=== PATIENT | female | born 1940 | race Caucasian/White ===

== ENCOUNTER 2017-11-10 19:01 | Inpatient (IN) | payer MEDICARE ==
[2017-11-10] MEDS ORDERED: niCARdipine 20MG In NaCl 20 MG/200 ML BAG ONE (19:03)
[2017-11-10 19:23] LABS: #Basophils 0.1 thou/uL (0.0-0.2); #Eosinphils 0.2 thou/uL (0.0-0.7); #Lymphocytes 2.6 thou/uL (1.20-3.40); #Monocytes 0.7 thou/uL (0.11-0.59); #Neutrophils 3.4 thou/uL (1.40-6.50); %Basophils 0.9 % (0.0-1.0); %Eosinophils 2.2 % (0.0-10.0); %Lymphocytes 37.9 % (21.0-51.0); %Monocytes 10.2 % (0.0-10.0); %Neutrophils 48.8 % (42.0-75.0); Hemoglobin 14.5 g/dL (12.0-16.0); Mean Corpuscular HGB CONC 35.3 g/dL (32.0-36.0); Mean Corpuscular Hemoglobin 30.7 pg (27.0-31.0); Mean Corpuscular Volume 86.9 fL (78.0-98.0); Mean Platelet Volume 8.6 fL (7.4-10.4); Platelet Count 163 thou/uL (130-400); RBC Distribution Width 12.1 % (11.5-14.5); Red Blood Cell (RBC) Count 4.73 mill/uL (4.20-5.40)
[2017-11-10 19:28] LABS: INR-International Normal Ratio 0.9; PTT 29.7 SEC (22.9-36.1); Prothrombin Time 12.5 SEC (12.0-14.7)
[2017-11-10] MEDS ORDERED: EPINEPHrine 1 MG/10 ML Abboject SYRINGE ONE (19:35)
[2017-11-10] MEDS ORDERED: EPINEPHrine 1 MG/ML AMP ONE (19:35)
[2017-11-10 19:37] LABS: ALT (SGPT) 18 U/L (8-55); AST (SGOT) 25 U/L (5-34); Acetaminophen Less than 6.0 mcg/mL (10.0-30.0); Albumin 4.6 g/dL (3.4-4.8); Alcohol Less than 10 mg/dL (Less than 10); Alkaline Phosphatase 55 U/L (40-150); Anion Gap 16 mmol/L (10-20); BUN (Urea Nitrogen) 17 mg/dL (9.8-20.1); Bilirubin, Total 0.5 mg/dL (0.2-1.2); CK (CPK) 98 U/L (29-168); Calc. Creatinine Clearance 0 mL/min (70-130); Calcium 10.1 mg/dL (7.8-10.44); Carbon Dioxide 21 mmol/L (23-31); Chloride 105 mmol/L (98-107); Estimated GFR-MDRD 65; Globulin 3.4 g/dL (2.4-3.5); Glucose 110 mg/dL (83-110); Potassium 3.9 mmol/L (3.5-5.1); Salicylate Less than 8.0 mg/dL (15.0-30.0); Sodium 138 mmol/L (136-145)
[2017-11-10 19:41] LABS: CKMB 1.3 ng/mL (0-6.6); Troponin I Less than 0.010 ng/mL (< 0.028)
[2017-11-10 19:54] LABS: Bilirubin Negative (Negative); Blood, Urine Negative (Negative); Clarity CLEAR (Clear); Glucose, Urine (Dipstick) Negative (Negative); Leukocyte Negative (Negative); Nitrite Negative (Negative); Protein, Urine (Dipstick) Negative (Neg-Trace); Specific Gravity, Urine 1.008 (1.002-1.036); Urobilinogen 0.2 mg/dL (0.2-1.0)
[2017-11-10 20:01] LABS: Amphetamine Not Detected (NotDetected); Barbiturates Screen Not Detected (NotDetected); Benzodiazepine Screen Not Detected (NotDetected); Cocaine Metabolite Screen Not Detected (NotDetected); Medtox Control Line Valid? VALID (VALID); Medtox Reader # READER 1; Methadone Not Detected (NotDetected); Methamphetamine Not Detected (NotDetected); Opiate Screen Not Detected (NotDetected); Oxycodone Screen Not Detected (NotDetected); Phencyclidine (PCP) Not Detected (NotDetected); THC/Cannabinoid Screen Not Detected (NotDetected); Tricyclic Screen Not Detected (NotDetected)
[2017-11-10 20:04] LABS: Actual Bicarbonate (HCO3a) 22.1 mEq/L (22-28); CO2 Tension 33.2 mmHg (35.0-45.0); O2 Tension (PaO2) 321.2 mmHg (> 70.0); pH, Arterial 7.44 (7.35-7.45)
[2017-11-10 20:05] LABS: Analyzer IN Cardio ER; Base Excess (BEa) -1.3 mEq/L (-2.0 to +3.0); Calcium, Ionized 1.2 mmol/L (1.12-1.30); Hemoglobin (Hb) 13.8 g/dL (12.0-16.0); Puncture Site RRA
--- NOTE | 2017-11-10 20:52 | RAD ---
CHEST ONE VIEW: 11/10/17 HISTORY: Intracranial hemorrhage. COMPARISON: None. FINDINGS: Portable semiupright chest demonstrates an endotracheal tube just proximal to the clavicles. Nasogast janet tube extends beyond the diaphragm. Distal tip is not seen. Normal cardiac silhouette. The pulmona ry vessels and hilum are normal. Costophrenic angles are clear. Patchy interstitial opacities in the lung bases, left greater than right may represent atelectasis, pneumonia or aspiration. No pneumothor ax or osseous abnormalities. IMPRESSION: Bibasilar opacities as described above. Lines and tubes as above. POS: [facility]
--- NOTE | 2017-11-10 21:33 | CT ---
NONCONTRAST HEAD CT 11/10/17 HISTORY: Stroke alert. Left facial droop. Last seen normal at 1845 hours. FINDINGS: There is evidence of an intraparenchymal hemorrhage which is centered in the right thalamus(2.1 x 3.1 cm)/right deep villaseñor matter structures. Hemorrhage appears to decompress into the ventricular system. There is hemorrhage in the right lateral ventricle, body of the left lateral ventricle, occipital ho rn of both lateral ventricles. Hemorrhage is also noted in the third ventricle, Sylvian aqueduct and fourth ventricle. There is some mass effect upon the third ventricle. Currently, there is mild promi nent of the ventricular system suggesting component of hydrocephalus. Cortical villaseñor-white matter differentiation is preserved. Calvarium is intact. Adequate aeration of the sinuses and mastoid air cells. IMPRESSION: Hemorrhagic, likely hypertensive bleed involving the right thalamus and deep villaseñor matter structures w ith decompression of hemorrhage into the ventricular system. There is associated mild hydrocephalus. Results of the study discussed with Dr. Neves, 11/10/17 at 7:16 p.m. Code NATALIE POS: [facility]
--- NOTE | 2017-11-10 22:04 | CT ---
HEAD CT WITHOUT CONTRAST 11/10/17 COMPARISON: 11/10/17. HISTORY: Followup intracranial hemorrhage. TECHNIQUE: Noncontrast head CT is performed from skull base to skull vertex. FINDINGS: Redemonstration of parenchymal hemorrhage centered in the right thalamus and deep villaseñor matter structu res. The hematoma measures 2.1 x 3.0 cm (previously measuring 3.1 x 2.1 cm. No appreciable change. Th ere is evidence of intraventricular hemorrhage. The degree of intraventricular blood is also stable. The overall configuration of the ventricular system has not changed. Stable mild prominence of tempor al horn of both lateral ventricles. No new areas of parenchymal hemorrhage are appreciated. Cortical villaseñor-white matter differentiation is preserved. Intact calvarium. There is no significant midline shift. However, there is some leftward mass effect upon the third ventricle secondary to the hematoma centered in the right thalamus/deep gr ay matter structures. IMPRESSION: Essentially stable intracranial hemorrhage. POS: [facility]
[2017-11-10] MEDS ORDERED: Milk Of Magnesia 30 ML UDCUP PO PRN (22:23)
[2017-11-10] MEDS ORDERED: Docusate 100 MG CAP PO PRN (22:23)
[2017-11-10] MEDS ORDERED: Mag-Al 1200 mg/1200 mg/30 ML UDCUP PO PRN (22:23)
[2017-11-10] MEDS ORDERED: niCARdipine 20MG in NaCl 200 ML BAG IVPB PRN (22:23)
[2017-11-10] MEDS ORDERED: Bisacodyl 10 MG SUPP PR PRN (22:23)
[2017-11-10] MEDS ORDERED: Ondansetron HCl/PF 4 MG/2 ML Vial IVP PRN (22:23)
[2017-11-10] MEDS ORDERED: Ventilator Sedation Protocol 1 EACH FS SCH (22:30)
[2017-11-10] MEDS ORDERED: fentaNYL Citrate/PF 2,000 MCG in Sodium Chloride 0.9% 60 ML IV SCH (22:37)
[2017-11-10] MEDS ORDERED: DISCONTINUE PREVIOUS NARCOTIC PAIN MEDICATIONS AND BENZODIAZEPINES FS SCH (22:37)
[2017-11-10] MEDS ORDERED: Propofol BOLUS 1,000 MG/100 ML VIAL IV PRN (22:37)
[2017-11-10] MEDS ORDERED: Fentanyl BOLUS 250 ML IVPB PRN (22:37)
[2017-11-10] MEDS ORDERED: Lorazepam 2 MG/ML VIAL SLOW IVP PRN (22:37)
[2017-11-10] MEDS: Sodium Chloride 0.9% 1,000 ML IV SCH (23:51)
[2017-11-11] MEDS: Propofol 1,000 MG/100 ML VIAL IV PRN ×2 (00:01→05:53)
[2017-11-11 07:27] LABS: Actual Bicarbonate (HCO3a) 21.9 mEq/L (22-28); Base Excess (BEa) -1.3 mEq/L (-2.0 to +3.0); CO2 Tension 32.7 mmHg (35.0-45.0); O2 Tension (PaO2) 138.9 mmHg (> 70.0); pH, Arterial 7.44 (7.35-7.45)
[2017-11-11 07:29] LABS: Hemoglobin (Hb) 15.6 g/dL (12.0-16.0)
[2017-11-11 07:30] LABS: Calcium, Ionized 1.1 mmol/L (1.12-1.30); Puncture Site RRA
[2017-11-11 07:31] LABS: ALV-art Gradient 105.425 (0-20)
--- NOTE | 2017-11-11 08:45 | CT ---
PRELIMINARY REPORT/[facility]/EMERGENTY AFTER-HOURS PROCEDURE CT Head Without Intravenous Contrast CLINICAL HISTORY: 77 years old, female; Condition or disease; Other: Hemorrhage; Patient HX: F/u intracerebral hemorrha gi stroke TECHNIQUE: Axial computed tomography images of the head/brain without intravenous contrast. COMPARISON: CT Brain WO Con 2017-11-10 21:44 FINDINGS: Essentially stable intracranial hemorrhage, with a 3.5 cm intraparenchymal hematoma in the right basa l ganglia/thalamus region, and intraventricular blood in the lateral, third, and fourth ventricles. No definite new hemorrhage in the interval. Essentially stable mass effect, with mild right and left midline shift at the level of intraparenchym al hemorrhage. Ventricle size is upper range of normal, stable. No other definite acute infarct by CT. No definite acute skull fracture. Minimal fluid/mucosal thickening in the sphenoid and maxillary sinuses. Included paranasal sinuses otherwise appear essentially clear. IMPRESSION: Essentially stable intracranial hemorrhage, see above details. No definite new hemorrhage in the interval. Other findings discussed above. Thank you for allowing us to participate in the care of your patient. Dictated and Authenticated by: Skip Forde MD 11/11/2017 6:25 AM Central Time ([place] & [place]) FINAL REPORT EMERGENT AFTER HOURS CT HEAD: DATE: 11/11/17. HISTORY: Intracerebral hemorrhagic stroke. Followup evaluation. COMPARISON: 11/10/17. IMPRESSION: 1. Stable parenchymal hemorrhage with epicenter in the region of the right basal ganglia/right thala mus with overall stable intraventricular hemorrhage again present. 2. Stable mild prominence of the temporal horns of the lateral ventricle which could be related to a n element of mild obstructive hydrocephalus due to intraventricular hemorrhage. 3. No new areas of hemorrhage are seen. 4. Chronic small-vessel ischemic changes and cerebral volume loss. 5. Sinus disease with air fluid level in the left sphenoid sinus and left maxillary antrum which may be related to intubation. 6. Findings are in agreement with the preliminary report by [facility]. POS: [facility]
--- NOTE | 2017-11-11 09:01 | HP ---
CHIEF COMPLAINT: Altered mental status. HISTORY OF PRESENT ILLNESS: Ms. Patel is a 77-year-old female who was reportedly brought to the ER due to stroke-like symptoms. The patient's friends were with her at that time. They state that she was at the [facility] [employer] meeting giving a speech and began to have slurred speech and left-sided numbness. This was approximately at about 6:35 p.m. EMS was called at 6:43 p.m. Upon arrival at the hospital, stated that she was alert, oriented, and she was answering questions. The patient began to deteriorate and had respiratory distress. The patient was intubated and sedated. Upon arrival in the patient's emergency room, she is intubated and resting comfortably, does not appear to be in any distress. The patient is hypertensive. We were consulted due to hemorrhagic hypertensive bleed involving the right thalamus and deep villaseñor matter structures with the question of hemorrhage into the ventricular system. Talking to patient's daughter, she states that the patient is a very high functioning 77-year-old, very active in the community, lives at home alone. REVIEW OF SYSTEMS: The patient is intubated and unable to obtain review of systems. PAST MEDICAL HISTORY: The patient is intubated, unable to obtain. Per the daughter, patient has known hypertension. No history of atrial fibrillation, stroke or arrhythmias. SURGICAL HISTORY: Per the daughter, history of cataract surgery and a hysterectomy many years ago. SOCIAL HISTORY: Unable to obtain. MEDICATIONS: Synthroid, atorvastatin, zolpidem, metoprolol, losartan, Restasis , acetaminophen, phenylephrine HCL, saline nasal spray. ALLERGIES: No known drug allergies. PHYSICAL EXAMINATION: VITAL SIGNS: BP 195/124, heart rate 76, respiratory rate 16, O2 100 on ventilator. The patient is afebrile. The patient is hypertensive. HEAD: Atraumatic, normocephalic. EYES: Pupils are equal, round, right is more reactive to light than left. NECK: Trachea is midline. No masses. RESPIRATORY: Patient is breathing normally with no sign of distress on respirator. CARDIOVASCULAR: Regular rate and rhythm. NEUROLOGIC: Patient is sedated and intubated. The patient is not responding to commands. The patient is moving 3 out of 4 extremities, both upper and lower on the right, lower extremity on the left. The patient is wiggling her toes. Patient is not retracting due to painful stimuli; however, she has been sedated for intubation. IMAGING: CT head noncontrast shows hypertensive hemorrhagic bleed involving the right thalamus and deep villaseñor matter structures with decompression of hemorrhage into the ventricular system. This is associated with mild hydrocephalus. Repeat CT is compared, no change. ASSESSMENT AND PLAN: The patient has intraparenchymal hemorrhage. PLAN: Maintain blood pressure below 150. We are going to have neuro checks q.4 hours. We are going to get a repeat CT scan in the morning. If scan is not expanding at this time we will repeat CT at 3:00 a.m. [facility]
--- NOTE | 2017-11-11 09:01 | CON ---
DATE OF CONSULTATION: 11/11/2017 Brabra Patel is a 77-year-old female with no primary care physician. As per the daughter, she sees Dr. Cook for uncontrolled hypertension, she recently had a checkup. She apparently developed a rather acute onset of left-sided weakness. EMS was called and apparently she was giving some kind of a speech at the [employer]. 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 Sh hanh does not smoke, drinks very infrequently. In the ER, she was found to have a large intracerebral h emorrhage extending into the thalamus. She is intubated on the vent. She is on low dose Diprivan. Additional medication this morning is that she is on nicardipine as IV drip. PAST MEDICAL HISTORY: Hypertension, high cholesterol, arthritis. PAST SURGICAL HISTORY: Right total knee, previous cardiac catheterization, previous eye surgery, pre vious stress test. CURRENT MEDICATIONS: Tylenol, Lipitor 20. Restasis eyedrops, metoprolol 25, Cozaar, apparently also includes Synthroid 100 mcg, atorvastatin, Zolpidem, losartan 25. ALLERGIES: None. SOCIAL/FAMILY HISTORY: Otherwise unremarkable. REVIEW OF SYSTEMS: Otherwise unobtainable, intubated. PHYSICAL EXAMINATION: VITAL SIGNS: Pulse 51, blood pressure 133/56, sats 90%, 30%, respirations 14. CHEST: No wheezing or crackles. CARDIAC: Normal S1, S2, no gallops. ABDOMEN: Soft. NEUROLOGIC: As noted, she is sedated. HEENT: Pupils are equal. LABORATORY AND X-RAY FINDINGS: Her pO2 is 138, pCO2 of 32%, 44 on a rate of 14 and 40% FIO2 and 4 of tidal volume. Electrolytes are normal. A toxicology screen was negative. Alcohol level was normal. IMPRESSION: 1. Status post intracerebral hemorrhage. 2. Hypertension. 3. Hypothyroidism. PLAN: 1. Continue vent support, minimize sedation. 2. Wean when she is neurologically stable. We will follow while in the ICU. Forty-five minutes critical care time.
--- NOTE | 2017-11-11 09:01 | PRG ---
DATE OF SERVICE: 11/11/2017 I personally examined the patient, reviewed records and imaging and agree with documentation of Yahaira Bella PA-C dated 11/10/2017. Briefly, Barbra Patel is a 77-year-old woman who was making presentation to [facility] yesterday when she began to have slurred speech, weakness and collapsed. [facility] the brain revealed a right thalamic hemorrhage with intraventricular extens ion. Due to some deterioration after intubation, she was sent back for scanning which was stable and she has had no other scan yet this morning. Nursing feels that her neurological function is improvi ng. I am seeing Ms. Patel in her hospital room. Her blood pressure is in the 120s. As I entered he room she is saturating well. She is on the ventilator. I turned the propofol off for just 1 yuni te and she begins to become purposeful with the right side. She localizes very quickly to sternal ru b. She attempts to open her eyes. There is down gaze preference. There is very limited upgaze. Th e left side moves a bit, but it is weaker. In the legs the strength is more symmetric with the right and left leg withdrawal quickly to some stimulus at the bottom of the foot. I reviewed this morning's CT scan in the thalamic hemorrhage is no different in size. There is a lit tle bit more vasogenic edema around it. There is no extra blood in the ventricular system. The vent ricular system has not grown in size. There is no obvious hydrocephalus. The sulci and gyri are sti ll visible over the convexity indicating that the ventricles are well balanced. Ms. Patel has improved neurologically. Her scan is stable. There is no ongoing bleeding. I would l hawa to get through this without surgical intervention. I discussed with her daughter on the phone th e possibility of external ventricular drainage should it be needed. I do not think surgical interven tion on the clot itself will be warranted in the future.
[2017-11-11] MEDS: Acetaminophen 325 MG TAB PO PRN (10:56)
[2017-11-11] MEDS ORDERED: DOPamine 400 MG/D5W 250 ML 250 ML IVPB SCH (11:00)
[2017-11-11] MEDS: Famotidine/PF 20 mg/2ml Vial SLOW IVP SCH ×2 (11:27→22:05)
[2017-11-11] MEDS: Sodium Chloride 0.9% 1,000 ML IV SCH ×2 (12:28→23:55)
[2017-11-11] MEDS: niCARdipine HCl 25 MG in Sodium Chloride 0.9% 250 ML 240 ML IVPB PRN ×2 (13:04→16:44)
--- NOTE | 2017-11-11 14:03 | PDOC.PN ---
- Subjective Encounter Start Date: 11/11/17 Encounter Start Time: 10:45 Subjective: pt intubated currently - Objective Vital Signs & Weight: Vital Signs (12 hours) Temp Pulse Resp BP BP Pulse Ox 11/11/17 13:00 100.1 F H 74 174/91 H 11/11/17 12:00 100.1 F H 14 11/11/17 11:00 100.2 F H 11/11/17 10:00 100.2 F H 63 14 138/65 100 11/11/17 08:35 99.9 F H 62 14 100 11/11/17 08:00 99.9 F H 11/11/17 06:50 55 L 158/72 H 11/11/17 06:00 14 11/11/17 04:00 97.8 F 14 11/11/17 02:03 60 Weight Admit Weight 155 lb Weight 155 lb 3.287 oz Most Recent Monitor Data Heart Rate from ECG 70 NIBP 147/99 NIBP BP-Mean 112 Respiration from ECG 19 SpO2 100 I&O: 11/10/17 11/11/17 11/12/17 06:59 06:59 06:59 Intake Total 725 80 Output Total 1160 365 Balance -435 -285 Result Diagrams: 11/10/17 19:12 11/10/17 19:12 Phys Exam - Physical Examination Neck: no nodes, no JVD, supple, full ROM Respiratory: no wheezing, no rales, no rhonchi, wheezing present, clear to auscultation bilateral Cardiovascular: RRR, no significant murmur, no rub, gallop, irregular Gastrointestinal: soft, no distention able to move right upper and lower ext on command, no eye openining Psychiatric: normal affect, A&O x 3 Dx/Plan (1) Hemorrhagic stroke Code(s): I61.9 - NONTRAUMATIC INTRACEREBRAL HEMORRHAGE, UNSPECIFIED Status: Acute (2) HTN (hypertension) Code(s): I10 - ESSENTIAL (PRIMARY) HYPERTENSION Status: Acute - Plan pt intubated currently is moving her right side on command but not opening -: her eyes -: bp controlled * . Review of Systems - Review of Systems Other: pt intubated - Medications/Allergies Allergies/Adverse Reactions: Allergies Allergy/AdvReac Type Severity Reaction Status Date / Time No Known Drug Allergies Allergy Unknown Verified 01/11/13 05:28 Medications: Current Medications Acetaminophen (Tylenol) 650 mg PO Q6H PRN PRN Reason: Fever > 101 or Headache Last Admin: 11/11/17 10:56 Dose: 650 mg Al Hydroxide/Mg Hydroxide (Maalox) 30 ml PO QIDPRN PRN PRN Reason: Dyspepsia Bisacodyl (Dulcolax) 10 mg LA DAILYPRN PRN PRN Reason: Constipation Docusate Sodium (Colace) 100 mg PO BIDPRN PRN PRN Reason: Constipation Famotidine (Pepcid) 20 mg SLOW IVP BID BIMAL Last Admin: 11/11/17 11:27 Dose: 20 mg Sodium Chloride (Normal Saline 0.9%) 1,000 mls @ 80 mls/hr IV .[id number] BIMAL Last Admin: 11/11/17 12:28 Dose: 1,000 mls Fentanyl Citrate 2,000 mcg/ (Sodium Chloride) 100 mls @ 0 mls/hr IV INF BIMAL; Per Protocol PRN Reason: Protocol Stop: 12/10/17 22:37 Fentanyl Citrate (Fentanyl Bolus) 250 mls @ 0 mls/hr IVPB PRN PRN; As Directed PRN Reason: Breakthrough pain/agitation Stop: 12/10/17 22:37 Nicardipine HCl 25 mg/ Sodium (Chloride) 250 mls @ 0 mls/hr IVPB INF PRN; Protocol; Titrate PRN Reason: For SBP > 150 or DBP > 90 Last Admin: 11/11/17 13:04 Dose: 250 mls Lorazepam (Ativan) 2 mg SLOW IVP Q1H PRN PRN Reason: Breakthrough agitation Stop: 12/10/17 22:37 Magnesium Hydroxide (Milk Of Magnesium) 30 ml PO BIDPRN PRN PRN Reason: Constipation Miscellaneous Medication (Ventilator Sedation Protocol) 1 each FS ONE BIMAL Stop: 12/10/17 22:31 Morphine Sulfate (Morphine Sulfate) 2 mg SLOW IVP Q1H PRN PRN Reason: BREAKTHROUGH PAIN/AGITATION Stop: 12/10/17 22:37 Discontinue Previous Narcotic Pain Medications And Benzodiazepines 1 each FS .ONE BIMAL Stop: 12/10/17 22:37 Ondansetron HCl (Zofran) 4 mg IVP BIDPRN PRN PRN Reason: Nausea/Vomiting Propofol (Diprivan) 1,000 mg IV INF PRN; Protocol PRN Reason: TO ACHIEVE GOAL RASS Stop: 12/10/17 22:37 Last Admin: 11/11/17 05:53 Dose: 1,000 mg Propofol (Diprivan Bolus) 20 mg IV Q5MIN PRN PRN Reason: BREAKTHROUGH AGITATION Stop: 12/10/17 22:37 Sodium Chloride (Flush - Normal Saline) 10 ml IVF PRN PRN PRN Reason: Saline Flush
[2017-11-12 08:07] LABS: Actual Bicarbonate (HCO3a) 19.2 mEq/L (22-28); Base Excess (BEa) -2.5 mEq/L (-2.0 to +3.0); CO2 Tension 26.2 mmHg (35.0-45.0); Hemoglobin (Hb) 15.3 g/dL (12.0-16.0); O2 Tension (PaO2) 68.3 mmHg (> 70.0); pH, Arterial 7.48 (7.35-7.45)
[2017-11-12 08:08] LABS: Calcium, Ionized 1.1 mmol/L (1.12-1.30); Puncture Site RRA
--- NOTE | 2017-11-12 09:04 | CT ---
PRELIMINARY REPORT/[facility]/EMERGENTY AFTER-HOURS PROCEDURE CT Head Without Intravenous Contrast EXAM DATE/TIME: 11/12/2017 3:15 AM CLINICAL HISTORY: 77 years old, female; Condition or disease; Other: Hemorrhage; Patient HX: F/u intracerebral hemorrha gic stroke TECHNIQUE: Axial computed tomography images of the head/brain without intravenous contrast. COMPARISON: CT Brain WO Con 2017-11-11 03:46 FINDINGS: Brain: Trace subarachnoid hemorrhage present in the posterior frontoparietal regions bilaterally is n ew compared to the prior study. No loss of villaseñor-white matter differentiation. Ventricles: Stable acute right thalamic hemorrhage with intraventricular extension. Stable intraventr icular blood clot. Stable 4 mm leftward midline shift. Ventricles are stable in caliber. Bones/joints: Normal. No acute fracture. Sinuses: Normal as visualized. No acute sinusitis. Mastoid air cells: Normal as visualized. No mastoid effusion. Soft tissues: Normal. IMPRESSION: 1. Stable acute right thalamic hemorrhage with intraventricular extension. Stable intraventricular bl ood clot. Stable 4 mm leftward midline shift. 2. Trace subarachnoid hemorrhage present in the posterior frontoparietal regions bilaterally is new c ompared to the prior study. Thank you for allowing us to participate in the care of your patient. Dictated and Authenticated by: Ghulam Acharya MD 11/12/2017 5:33 AM Central Time ([place] & [place]) EMERGENT AFTER HOURS CT HEAD: 11/12/2017 HISTORY: Follow-up intracranial hemorrhage. Intracerebral hemorrhagic stroke. COMPARISON: 11/11/2017 IMPRESSION: 1. Stable parenchymal hemorrhage with the epicenter again in the region of the right thalamus, with adjacent edema. The surrounding edema may be slightly increased from the prior study. 2. Stable intraventricular hemorrhage. There is, again, dilatation of the temporal horns of each la teral ventricle, which may be related to an element of obstructive hydrocephalus, due to intraventric ular hemorrhage. 3. New small focus of subarachnoid hemorrhage within the posterior frontal parietal lobes bilaterall y. 4. Slight shift of the midline structures to the left, measuring approximately 4 mm. The findings are in agreement with the preliminary report by [facility]. POS: [facility]
[2017-11-12 10:13] LABS: #Lymphocytes 0.9 thou/uL (1.20-3.40); #Monocytes 0.8 thou/uL (0.11-0.59); #Neutrophils 9.5 thou/uL (1.40-6.50); %Basophils 0.1 % (0.0-1.0); %Eosinophils 0.1 % (0.0-10.0); %Lymphocytes 8.3 % (21.0-51.0); %Monocytes 7.2 % (0.0-10.0); %Neutrophils 84.3 % (42.0-75.0); Hemoglobin 14.7 g/dL (12.0-16.0); Mean Corpuscular HGB CONC 34.9 g/dL (32.0-36.0); Mean Corpuscular Hemoglobin 30.1 pg (27.0-31.0); Mean Corpuscular Volume 86.3 fL (78.0-98.0); Mean Platelet Volume 8.8 fL (7.4-10.4); Platelet Count 153 thou/uL (130-400); RBC Distribution Width 12.1 % (11.5-14.5); White Blood Cell (WBC) Count 11.3 thou/uL (4.8-10.8)
[2017-11-12 10:30] LABS: Anion Gap 13 mmol/L (10-20); BUN (Urea Nitrogen) 9 mg/dL (9.8-20.1); Calc. Creatinine Clearance 76 mL/min (70-130); Carbon Dioxide 19 mmol/L (23-31); Chloride 105 mmol/L (98-107); Estimated GFR-MDRD 85; Glucose 131 mg/dL (83-110); Potassium 3.2 mmol/L (3.5-5.1); Sodium 134 mmol/L (136-145)
--- NOTE | 2017-11-12 10:32 | PRG ---
DATE OF SERVICE: 11/12/2017 I saw Barbra Patel in ICU room this morning and spoke with the daughter in the ICU waiting room. Ms. Andrey casiano is 2 days out from a right thalamic hemorrhage with intraventricular extension. Overnight, no si gnificant events were reported. Blood pressure seemed to be relatively well controlled in the last 2 4 hours. On examination, Ms. Patel has her eyes open as I entered the room this morning. I introduced myself and she nods, she is following commands well with the right side, too weak on the left. There is robin e withdrawal on the left lower extremity or triple flexion. There is no significant motion of the le ft upper extremity. There is no sensation on the left side. CT examination of the brain this morning reveals slight increase in the ventricular size, but the sul ci and gyri were not pressed out to the surface of the skull. Ms. Patel has thalamic and intraventricular hemorrhage. This is likely nonsurgical. The expansion o f the ventricular system is ordered in order to get CSF to circulate around the clot and it is not ca using pressure phenomenon. Clinically, she is getting better. I do not believe Ms. Patel shall require any surgical intervention. A limited intervention with exte rnal ventricular drain is possible, but much less likely now than it was when she was admitted. I th ink we will get through this without any neurosurgical procedure. The blood products should wash yony y over the 3-[address] scan as recommended after that. She undoubtedly will need a bra in rehabilitation or halfway placement following this hospitalization. Hopefully, she can make progress where a swallowing is safe rather than having had a tracheostomy and gastrostomy, but the mariaelena mccoy is aware that these are possibilities.
--- NOTE | 2017-11-12 11:59 | PRG ---
DATE OF SERVICE: 11/12/2017 SUBJECTIVE: This morning, she is more responsive, off sedation. She is not moving her left side, moves_ right side, squeezing it appropriately. OBJECTIVE: VITAL SIGNS: Blood pressure 118/60, pulse 70, respiration rate 18. She is afebrile. CHEST: Decreased breath sounds, no wheezing. CARDIAC: Normal S1 and S2, no gallops. ABDOMEN: Soft, no masses. LABORATORY DATA AND IMAGING DATA: PO2 of 68, pCO2 of43_, rate of 14. She is on CPAP right now. CT continues to show the thalamic hemorrhage, intracerebral hemorrhage. IMPRESSION: 1. Status post intracerebral hemorrhage. 2. Hypertension. PLAN: Continue CPAP. We will start nutrition and PT. As per family's wishes, she is a FULL CODE at this time. Hopefully, we can wean and extubate in the next several days. [id number] critical care time. [facility]
[2017-11-12] MEDS ORDERED: Potassium Chloride 20 MEQ in Premix Bag 1 BAG IVPB SCH (13:15)
--- NOTE | 2017-11-12 13:33 | ULT ---
BILATERAL LOWER EXTREMITY VENOUS DUPLEX ULTRASOUND INCLUDING COLOR AND SPECTRAL IMAGING: HISTORY: A 77-year-old female with high risk of DVT because of poor mobility. Intracranial hemorrhage. TECHNIQUE: Exam performed from the groin to the ankle, including the visualized greater saphenous, the common fe moral, the superficial femoral, the profunda femoral, the popliteal, the trifurcation, and the cement paver ior tibial vein regions. FINDINGS: There is phasic flow at all levels with normal compressibility and normal augmentation. No intralumi nal thrombus. Minimal distal subcutaneous swelling and edema, superficially. IMPRESSION: 1. No evidence for deep venous thrombosis. 2. Minimal distal lower leg subcutaneous edema and swelling. POS: [facility]
[2017-11-12] MEDS: Sodium Chloride 0.9% 1,000 ML IV SCH (15:36)
[2017-11-12] MEDS: Potassium Chloride 20 MEQ TAB PO SCH (15:58)
[2017-11-12] MEDS: Famotidine/PF 20 mg/2ml Vial SLOW IVP SCH ×2 (17:46→21:56)
[2017-11-12] MEDS: Acetaminophen 325 MG TAB PO PRN (18:17)
[2017-11-12] MEDS ORDERED: cycloSPORINE 0.05% Ophthalmic Droperette EA EYE PRN (21:04)
--- NOTE | 2017-11-12 21:08 | PDOC.PN ---
- Subjective Encounter Start Date: 11/12/17 Encounter Start Time: 12:30 Subjective: pt up in bed intubated but opening her eyes - Objective Vital Signs & Weight: Vital Signs (12 hours) Temp Pulse Pulse Pulse Resp BP BP 11/12/17 18:20 75 11/12/17 18:00 102.0 F H 22 H 11/12/17 16:00 99.0 F 24 H 11/12/17 15:33 71 147/82 H 11/12/17 14:00 19 11/12/17 12:00 98.3 F 17 11/12/17 11:47 53 L 116/50 L 11/12/17 11:07 70 71 137/54 L 11/12/17 10:00 17 BP Pulse Ox Pulse Ox 11/12/17 18:20 11/12/17 18:00 11/12/17 16:00 11/12/17 15:33 11/12/17 14:00 11/12/17 12:00 11/12/17 11:47 11/12/17 11:07 129/64 96 95 11/12/17 10:00 Weight Admit Weight 155 lb Weight 153 lb 10.595 oz Most Recent Monitor Data Heart Rate from ECG 79 NIBP 129/58 NIBP BP-Mean 73 Respiration from ECG 25 SpO2 97 I&O: 11/11/17 11/12/17 11/13/17 06:59 06:59 06:59 Intake Total 725 2158 60 Output Total 1160 2253 498 Balance -435 -95 -438 Result Diagrams: 11/12/17 09:57 11/12/17 09:57 Phys Exam - Physical Examination Neck: no nodes, no JVD, supple, full ROM Respiratory: no wheezing, no rales, no rhonchi, wheezing present, clear to auscultation bilateral Cardiovascular: RRR, no significant murmur, no rub, gallop, irregular Gastrointestinal: soft, non-tender, no distention, positive bowel sounds left side weakness, able to move her right upper and lower ext Dx/Plan (1) Hemorrhagic stroke Code(s): I61.9 - NONTRAUMATIC INTRACEREBRAL HEMORRHAGE, UNSPECIFIED Status: Acute (2) HTN (hypertension) Code(s): I10 - ESSENTIAL (PRIMARY) HYPERTENSION Status: Acute - Plan pt spiked a fever will get blood cx and ua -: cxr ordered in am. will hold off on abx for now, mild elevated wbc * . Review of Systems - Review of Systems Other: unable to obtain - Medications/Allergies Allergies/Adverse Reactions: Allergies Allergy/AdvReac Type Severity Reaction Status Date / Time No Known Drug Allergies Allergy Unknown Verified 01/11/13 05:28 Medications: Current Medications Acetaminophen (Tylenol) 650 mg PO Q6H PRN PRN Reason: Fever > 101 or Headache Last Admin: 11/12/17 18:17 Dose: 650 mg Al Hydroxide/Mg Hydroxide (Maalox) 30 ml PO QIDPRN PRN PRN Reason: Dyspepsia Atorvastatin Calcium (Lipitor) 20 mg PO DAILY BIMAL Bisacodyl (Dulcolax) 10 mg [place] DAILYPRN PRN PRN Reason: Constipation Cyclosporine (Restasis) 0 ml EA EYE BIDPRN PRN PRN Reason: Dry Eyes Docusate Sodium (Colace) 100 mg PO BIDPRN PRN PRN Reason: Constipation Famotidine (Pepcid) 20 mg SLOW IVP BID BIMAL Last Admin: 11/12/17 17:46 Dose: 20 mg Sodium Chloride (Normal Saline 0.9%) 1,000 mls @ 80 mls/hr IV .[id number] BIMAL Last Admin: 11/12/17 15:36 Dose: 1,000 mls Fentanyl Citrate 2,000 mcg/ (Sodium Chloride) 100 mls @ 0 mls/hr IV INF BIMAL; Per Protocol PRN Reason: Protocol Stop: 12/10/17 22:37 Fentanyl Citrate (Fentanyl Bolus) 250 mls @ 0 mls/hr IVPB PRN PRN; As Directed PRN Reason: Breakthrough pain/agitation Stop: 12/10/17 22:37 Nicardipine HCl 25 mg/ Sodium (Chloride) 250 mls @ 0 mls/hr IVPB INF PRN; Protocol; Titrate PRN Reason: For SBP > 150 or DBP > 90 Last Admin: 11/11/17 16:44 Dose: 250 mls Lorazepam (Ativan) 2 mg SLOW IVP Q1H PRN PRN Reason: Breakthrough agitation Stop: 12/10/17 22:37 Magnesium Hydroxide (Milk Of Magnesium) 30 ml PO BIDPRN PRN PRN Reason: Constipation Miscellaneous Medication (Ventilator Sedation Protocol) 1 each FS ONE BIMAL Stop: 12/10/17 22:31 Morphine Sulfate (Morphine Sulfate) 2 mg SLOW IVP Q1H PRN PRN Reason: BREAKTHROUGH PAIN/AGITATION Stop: 12/10/17 22:37 Discontinue Previous Narcotic Pain Medications And Benzodiazepines 1 each FS .ONE [facility] Stop: 12/10/17 22:37 Ondansetron HCl (Zofran) 4 mg IVP BIDPRN PRN PRN Reason: Nausea/Vomiting Potassium Chloride (K-Dur) 40 meq PO BID-[facility] Last Admin: 11/12/17 15:58 Dose: 40 meq Propofol (Diprivan) 1,000 mg IV INF PRN; Protocol PRN Reason: TO ACHIEVE GOAL RASS Stop: 12/10/17 22:37 Last Admin: 11/11/17 05:53 Dose: 1,000 mg Propofol (Diprivan Bolus) 20 mg IV Q5MIN PRN PRN Reason: BREAKTHROUGH AGITATION Stop: 12/10/17 22:37 Sodium Chloride (Flush - Normal Saline) 10 ml IVF PRN PRN PRN Reason: Saline Flush
[2017-11-13 04:32] LABS: Anion Gap 13 mmol/L (10-20); BUN (Urea Nitrogen) 14 mg/dL (9.8-20.1); Calc. Creatinine Clearance 76 mL/min (70-130); Calcium 8.8 mg/dL (7.8-10.44); Carbon Dioxide 18 mmol/L (23-31); Chloride 108 mmol/L (98-107); Estimated GFR-MDRD 85; Glucose 162 mg/dL (83-110); Potassium 3.6 mmol/L (3.5-5.1); Sodium 135 mmol/L (136-145)
[2017-11-13] MEDS: Sodium Chloride 0.9% 1,000 ML IV SCH ×2 (04:37→14:27)
[2017-11-13] MEDS: Acetaminophen 325 MG TAB PO PRN ×3 (05:08→20:33)
[2017-11-13 05:58] LABS: #Lymphocytes 1.1 thou/uL (1.20-3.40); #Monocytes 1.4 thou/uL (0.11-0.59); %Basophils 0.1 % (0.0-1.0); %Eosinophils 0.2 % (0.0-10.0); %Lymphocytes 7.8 % (21.0-51.0); %Monocytes 10.6 % (0.0-10.0); %Neutrophils 81.4 % (42.0-75.0); Mean Corpuscular HGB CONC 33.8 g/dL (32.0-36.0); Mean Corpuscular Hemoglobin 30.2 pg (27.0-31.0); Mean Corpuscular Volume 89.3 fL (78.0-98.0); Mean Platelet Volume 10.1 fL (7.4-10.4); Platelet Count 122 thou/uL (130-400); RBC Distribution Width 12.3 % (11.5-14.5); Red Blood Cell (RBC) Count 4.63 mill/uL (4.20-5.40); White Blood Cell (WBC) Count 13.5 thou/uL (4.8-10.8)
[2017-11-13 08:32] LABS: pH, Arterial 7.43 (7.35-7.45)
[2017-11-13 08:33] LABS: Actual Bicarbonate (HCO3a) 20.6 mEq/L (22-28); Base Excess (BEa) -2.8 mEq/L (-2.0 to +3.0); Hemoglobin (Hb) 14.1 g/dL (12.0-16.0); O2 Tension (PaO2) 59.1 mmHg (> 70.0)
[2017-11-13 08:34] LABS: Calcium, Ionized 1.2 mmol/L (1.12-1.30); Puncture Site RRA
[2017-11-13] MEDS: Atorvastatin Calcium 20 MG TAB PO SCH (08:34)
[2017-11-13] MEDS: Potassium Chloride 20 MEQ TAB PO SCH ×2 (08:34→16:16)
[2017-11-13] MEDS: Famotidine/PF 20 mg/2ml Vial SLOW IVP SCH ×2 (08:34→21:58)
[2017-11-13] MEDS: Piperacillin/Tazobactam 3.375 GM in Sodium Chloride 0.9% 100 ML IVPB SCH ×3 (09:13→20:33)
--- NOTE | 2017-11-13 09:32 | PRG ---
DATE OF SERVICE: 11/13/2017 I saw Ms. Patel in our ICU this morning. 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 Nurses do not report any significant events overnight. She is tolerating the ventilator. Her blood pressure seems well controlled. I saw her this morning in her critical care unit room and I note the blood pressur es recorded overnight are well within the targeted goals. Her heart rates have been in the 50s-60s. When I speak with Ms. Patel, she opens her eyes and meets my gaze. She follows commands on the righ t side. She is not moving the left side purposefully for me today. She is not following commands on her left side either. She drifts off to sleep quickly after we disengaged from our conversation. S odium this morning is 135. As expected, Ms. Patel will have her peak vasogenic edema sometime today and slowly it should improve over time. I do not think we are going to needed mannitol or any invasive procedure to control this , but she may get a little sleepier today than before. We will make sure that she is not getting any hypotonic fluids. We will continue to monitor her sodium and try to keep it in the normal to high n ormal range. On Tuesday, we spoke with the family about the future possibility of tracheostomy and ga strostomy. Hopefully, we do not have to do this, but if she remains on the ventilator few more days it might be a consideration. We will continue to follow.
--- NOTE | 2017-11-13 10:00 | PRG ---
DATE OF SERVICE: 11/13/2017 SUBJECTIVE: A 77-year-old female, intubated on the vent, still on CPAP without any distress. Accord ing to the nurses, she was responding a little bit more yesterday. IMAGING DATA: X-ray shows no new infiltrates. OBJECTIVE: VITAL SIGNS: Pulse 56, blood pressure 126/46, sats 90% on the vent, respiration 18. She is afebrile . CHEST: Bilateral rhonchi and crackles. CARDIAC: Normal S1 and S2, no gallops. ABDOMEN: Soft, no masses. LABORATORY DATA: White count . Electrolytes are normal. IMPRESSION: 1. Status post right thalamic hemorrhage, trace subarachnoid hemorrhage. 2. Respiratory failure. PLAN: From the pulmonary standpoint of view, she is on empiric antibiotics. Continue nutrition and PT. Try to maintain blood pressure. Discussed with family ongoing issues whether they needed trach and a PEG. At this stage, unlikely she is going to do well off the vent. Avoid sedation. [id number] critical care time.
--- NOTE | 2017-11-13 10:44 | RAD ---
PORTABLE AP CHEST XRAY: DATE: 11/13/17. HISTORY: On ventilator. COMPARISON: 11/10/17. FINDINGS: Endotracheal tube and nasogastric tubes remain in place and unchanged in position. Cardiac silhouett e and pulmonary vasculature are within normal limits for the technique of the exam. Increased patchy interstitial opacities are again seen at each lung base which have mildly increased at the right emiliana g base. Lungs are otherwise clear. No other interval change. IMPRESSION: 1. Bibasilar opacities which could be related to atelectasis, or bibasilar pneumonia. Followup to c omplete resolution is recommended. 2. Lines and tubes stable in position. POS: [facility]
--- NOTE | 2017-11-13 13:03 | PDOC.PN ---
- Subjective Encounter Start Date: 11/13/17 Encounter Start Time: 10:30 Subjective: pt inubated - Objective Vital Signs & Weight: Vital Signs (12 hours) Temp Pulse Resp BP Pulse Ox 11/13/17 12:00 99.0 F 22 H 11/13/17 11:29 57 L 158/61 H 11/13/17 10:00 22 H 11/13/17 08:00 98.7 F 53 L 22 H 92 L 11/13/17 07:52 52 L 132/50 L 11/13/17 06:00 98.7 F 11/13/17 05:48 18 11/13/17 04:00 18 11/13/17 02:00 20 11/13/17 01:54 62 Weight Admit Weight 155 lb Weight 157 lb 6.561 oz Most Recent Monitor Data Heart Rate from ECG 66 NIBP 165/62 NIBP BP-Mean 85 Respiration from ECG 23 SpO2 95 I&O: 11/12/17 11/13/17 11/14/17 06:59 06:59 06:59 Intake Total 2158 1653 130 Output Total 2253 923 330 Balance -95 730 -200 Result Diagrams: 11/13/17 03:46 11/13/17 03:46 Phys Exam - Physical Examination Neck: no nodes, no JVD, supple, full ROM Respiratory: no wheezing, no rales, no rhonchi, wheezing present, clear to auscultation bilateral Cardiovascular: RRR, no significant murmur, no rub, gallop, irregular Gastrointestinal: soft, no distention still has left side weakness Dx/Plan (1) Hemorrhagic stroke Code(s): I61.9 - NONTRAUMATIC INTRACEREBRAL HEMORRHAGE, UNSPECIFIED Status: Acute (2) HTN (hypertension) Code(s): I10 - ESSENTIAL (PRIMARY) HYPERTENSION Status: Acute (3) Fever Code(s): R50.9 - FEVER, UNSPECIFIED Status: Acute - Plan pt still intubated -: blood cx and ua checked, ua negative will start pt on zosyn, -: mild opacities noted on cxr. * . Review of Systems - Review of Systems Other: unable to do - Medications/Allergies Allergies/Adverse Reactions: Allergies Allergy/AdvReac Type Severity Reaction Status Date / Time No Known Drug Allergies Allergy Unknown Verified 01/11/13 05:28 Medications: Current Medications Acetaminophen (Tylenol) 650 mg PO Q6H PRN PRN Reason: Fever > 101 or Headache Last Admin: 11/13/17 12:57 Dose: 650 mg Al Hydroxide/Mg Hydroxide (Maalox) 30 ml PO QIDPRN PRN PRN Reason: Dyspepsia Atorvastatin Calcium (Lipitor) 20 mg PO DAILY [facility] Last Admin: 11/13/17 08:34 Dose: 20 mg Bisacodyl (Dulcolax) 10 mg [place] DAILYPRN PRN PRN Reason: Constipation Cyclosporine (Restasis) 0 ml EA EYE BIDPRN PRN PRN Reason: Dry Eyes Docusate Sodium (Colace) 100 mg PO BIDPRN PRN PRN Reason: Constipation Famotidine (Pepcid) 20 mg SLOW IVP BID [facility] Last Admin: 11/13/17 08:34 Dose: 20 mg Sodium Chloride (Normal Saline 0.9%) 1,000 mls @ 80 mls/hr IV .[id number] [facility] Last Admin: 11/13/17 04:37 Dose: 1,000 mls Fentanyl Citrate 2,000 mcg/ (Sodium Chloride) 100 mls @ 0 mls/hr IV INF BIMAL; Per Protocol PRN Reason: Protocol Stop: 12/10/17 22:37 Fentanyl Citrate (Fentanyl Bolus) 250 mls @ 0 mls/hr IVPB PRN PRN; As Directed PRN Reason: Breakthrough pain/agitation Stop: 12/10/17 22:37 Nicardipine HCl 25 mg/ Sodium (Chloride) 250 mls @ 0 mls/hr IVPB INF PRN; Protocol; Titrate PRN Reason: For SBP > 150 or DBP > 90 Last Admin: 11/11/17 16:44 Dose: 250 mls Piperacillin Sod/Tazobactam (Sod 3.375 gm/ Sodium Chloride) 100 mls @ 200 mls/ hr IVPB 0300,0900,1500,2100 [facility] Last Admin: 11/13/17 09:13 Dose: 100 mls Lorazepam (Ativan) 2 mg SLOW IVP Q1H PRN PRN Reason: Breakthrough agitation Stop: 12/10/17 22:37 Magnesium Hydroxide (Milk Of Magnesium) 30 ml PO BIDPRN PRN PRN Reason: Constipation Miscellaneous Medication (Ventilator Sedation Protocol) 1 each FS ONE [facility] Stop: 12/10/17 22:31 Morphine Sulfate (Morphine) 2 mg SLOW IVP Q1H PRN PRN Reason: BREAKTHROUGH PAIN/AGITATION Stop: 12/12/17 21:45 Last Admin: 11/13/17 02:34 Dose: 2 mg Discontinue Previous Narcotic Pain Medications And Benzodiazepines 1 each FS .ONE BIMAL Stop: 12/10/17 22:37 Ondansetron HCl (Zofran) 4 mg IVP BIDPRN PRN PRN Reason: Nausea/Vomiting Potassium Chloride (K-Dur) 40 meq [facility]ID[facility] Last Admin: 11/13/17 08:34 Dose: 40 meq Propofol (Diprivan) 1,000 mg IV INF PRN; Protocol PRN Reason: TO ACHIEVE GOAL RASS Stop: 12/10/17 22:37 Last Admin: 11/11/17 05:53 Dose: 1,000 mg Propofol (Diprivan Bolus) 20 mg IV Q5MIN PRN PRN Reason: BREAKTHROUGH AGITATION Stop: 12/10/17 22:37 Sodium Chloride (Flush - Normal Saline) 10 ml IVF PRN PRN PRN Reason: Saline Flush
[2017-11-14] MEDS: Piperacillin/Tazobactam 3.375 GM in Sodium Chloride 0.9% 100 ML IVPB SCH ×2 (03:30→08:54)
[2017-11-14] MEDS: Sodium Chloride 0.9% 1,000 ML IV SCH ×3 (03:31→17:04)
[2017-11-14 04:33] LABS: Anion Gap 11 mmol/L (10-20); BUN (Urea Nitrogen) 10 mg/dL (9.8-20.1); Calc. Creatinine Clearance 82 mL/min (70-130); Calcium 8.5 mg/dL (7.8-10.44); Carbon Dioxide 20 mmol/L (23-31); Chloride 106 mmol/L (98-107); Estimated GFR-MDRD 90; Glucose 153 mg/dL (83-110); Potassium 3.4 mmol/L (3.5-5.1); Sodium 134 mmol/L (136-145)
[2017-11-14 04:59] LABS: Band 11 % (5-11); Eosinophils 2 % (0-10); Hemoglobin 12.7 g/dL (12.0-16.0); Lymphocytes 19 % (21-51); MDiff Complete? YES; Mean Corpuscular HGB CONC 34.2 g/dL (32.0-36.0); Mean Corpuscular Hemoglobin 29.9 pg (27.0-31.0); Mean Corpuscular Volume 87.7 fL (78.0-98.0); Mean Platelet Volume 9.3 fL (7.4-10.4); Monocytes 7 % (0-10); Neutrophil 61 % (42-75); Nucleated RBC 1 % (0); PLT Morphology Comment Appears Decreased; Platelet Count 116 thou/uL (130-400); RBC Distribution Width 12.1 % (11.5-14.5); RBC Morphology Normal; Red Blood Cell (RBC) Count 4.24 mill/uL (4.20-5.40); White Blood Cell (WBC) Count 8.9 thou/uL (4.8-10.8)
[2017-11-14 07:34] LABS: pH, Arterial 7.47 (7.35-7.45)
[2017-11-14 07:35] LABS: Actual Bicarbonate (HCO3a) 20.1 mEq/L (22-28); Base Excess (BEa) -2.3 mEq/L (-2.0 to +3.0); CO2 Tension 28.1 mmHg (35.0-45.0); Hemoglobin (Hb) 12.7 g/dL (12.0-16.0); O2 Tension (PaO2) 68.7 mmHg (> 70.0)
[2017-11-14 07:36] LABS: ALV-art Gradient 145.725 (0-20); Calcium, Ionized 1.1 mmol/L (1.12-1.30); Puncture Site RRA
[2017-11-14 08:04] VITALS: BMI 26.7
--- NOTE | 2017-11-14 08:37 | PRG ---
DATE OF SERVICE: 11/14/2017 This morning she is on the vent, intubated with no sedation. PHYSICAL EXAMINATION: VITAL SIGNS: Pulse 50, blood pressure 128/62, sats are 100%, respirations 19, temperature was [address] night. NEURO: Neurologically, she moves her right side, but not much of the left side. CHEST: Chest reveals decreased breath sounds without any wheezing. CARDIAC: Normal S1, S2, no gallops. ABDOMEN: Soft, no masses. LABORATORY DATA: White count 8000, H&H 12 and 37, platelet count 116, PO2 was 68, pCO2 27.47 on a CP AP, 35% FiO2. Electrolytes are normal. Blood cultures drawn. X-ray shows now bilateral bronchopneumonia. IMPRESSION: 1. Status post respiratory failure. 2. Status post right-sided thalamic intracerebral hemorrhage with ventricular extension. 3. Pneumonia. PLAN: I am concerned if we extubate her it is very unlikely she would tolerate extubation. She is u nable to protect her airway. She has got a poor cough. Family is to have a meeting today and discuss whether they want a trach and a PEG. In the meantime w e will continue nutrition, maintain blood pressure. Broad spectrum antibiotics. This is a one-half hour critical care time.
[2017-11-14] MEDS: Atorvastatin Calcium 20 MG TAB PO SCH (08:53)
[2017-11-14] MEDS: Potassium Chloride 20 MEQ TAB PO SCH (08:53)
[2017-11-14] MEDS: Famotidine/PF 20 mg/2ml Vial SLOW IVP SCH ×2 (08:54→21:43)
[2017-11-14] MEDS: Cefepime 2 GM in Sodium Chloride 0.9% 100 ML IVPB SCH ×2 (08:54→21:46)
--- NOTE | 2017-11-14 10:16 | RAD ---
CHEST ONE VIEW: History: Intracranial hemorrhage. Dyspnea. Follow up. Comparison: 11-13-17 FINDINGS: Cardiac silhouette is magnified and partially obscured by increasing patchy bibasilar infiltrates. Pu lmonary vasculature upper limits of normal. Mediastinum is midline. Lines and tubes are unchanged in position. No evidence of pneumothorax. IMPRESSION: Worsening patchy bibasilar infiltrates. Other findings are stable. POS: [facility]
--- NOTE | 2017-11-14 11:12 | PQF ---
JAILYN CHUNG LEE ANN ALEXANDER [id number] CLINICAL DOCUMENTATION IMPROVEMENT CLARIFICATION FORM: ICD-10 Updated PLEASE DO AN ADDENDUM TO THE PROGRESS NOTE WITH ANY DOCUMENTATION UPDATES OR ADDITIONS AND CARRY THROUGH TO DC SUMMARY. THANK YOU. DATE: 11-14-1711-15-11-16 ATTN: DR. ALEXANDER Please exercise your independent, professional judgment in responding to the clarification form. Clinical indicators are provided on the bottom of this form for your review Please check appropriate box(s): [ x ] Aspiration Pneumonia [ ] Ventilator Acquired PNA [ ] Empirically treating Gram Negative Pneumonia [ ] Pneumonia of unknown etiology [ ] Other diagnosis [ ] Unable to determine In addition, please specify: Present on Admission (POA): [ ] Yes [ ] No [ x] Unable to determine For continuity of documentation, please document condition throughout progress notes and discharge summary. Thank You. CLINICAL INDICATORS - SIGNS / SYMPTOMS / LABS 11-10 CXR: PATCHY INTERSTITIAL OPACITIES IN LUNG BASES, LEFT GREATER THAN RIGHT. MAY REPRESENT ATELECTASIS, PNA OR ASPIRATION. 11-12 ([facility]) PT SPIKED FEVER (102.0) - WILL GET BLD CX AND UA; CXR 11-13 ([facility]) [facility]A NEGATIVE - WILL START PT ON ZOSYN / MILD OPACITIES NOTED ON CXR 11-13 CXR: BIBASILAR OPACITIES WHICH COULD BE R/T ATELECTASIS OR BIBASILAR PNA - F/U TO COMPLETE RESOLUTION IS RECOMMENDED; WORSENING PATCHY BIBASILAR INFILTRATES. 11-14 ([facility]) PNA RISK FACTORS 11-10 H&P ([facility]): slurred speech/ left-sided numbness; Intraparenchymal hemorrhage TREATMENTS: CPOE: ON VENT 11-10 - 11-14 Serial CXRs 11-10 / 11-13 / 11-14 MAR: 11-13 Zosyn 11-14 Maxipime 11-15 Speech Eval: Functional Impairment - speech / Language/cognitive / swallowing - all with severe functional impairment THANK YOU, TANISHA (This form is maintained as a part of the permanent medical record) 2014 [employer]. All Rights Reserved Tanisha Tilley RN, MARY [email or web address] [employer]
[2017-11-14 12:01] LABS: Phosphorus 1.4 mg/dL (2.3-4.7)
--- NOTE | 2017-11-14 13:33 | EKG ---
Test Reason : STAT Blood Pressure : / mmHG Vent. Rate : 073 BPM Atrial Rate : 073 BPM P-R Int : 164 ms QRS Dur : 088 ms QT Int : 454 ms P-R-T Axes : 077 065 093 degrees QTc Int : 500 ms Sinus rhythm with sinus arrhythmia with occasional Premature ventricular complexes Nonspecific ST abnormality Prolonged QT Abnormal ECG When compared with ECG of 10-NOV-2017 19:20, (Unconfirmed) Premature ventricular complexes are now Present Nonspecific T wave abnormality no longer evident in Inferior leads Nonspecific T wave abnormality, improved in Lateral leads QT has lengthened Confirmed by DIO BROWNLEE, DR. Bryant ([id number]) on 11/14/2017 1:32:30 PM Referred By: Confirmed By:DR. Manny WHARTON MD
--- NOTE | 2017-11-14 17:57 | PDOC.PN ---
- Subjective Encounter Start Date: 11/14/17 Encounter Start Time: 10:30 Subjective: pt's family at bedside pt is intubated - Objective Resuscitation Status: Resuscitation Status DNR:Do Not Resuscitate Vital Signs & Weight: Vital Signs (12 hours) Temp Pulse Pulse Pulse Resp BP BP 11/14/17 16:16 97.5 F L 59 L 20 11/14/17 15:56 97.5 F L 59 L 20 11/14/17 14:33 63 65 151/76 H 11/14/17 12:00 98.6 F 11/14/17 10:55 61 17 11/14/17 10:00 19 11/14/17 08:00 99.5 F 53 L 19 11/14/17 07:08 52 L 144/53 H 11/14/17 06:00 99.5 F 19 BP BP Pulse Ox Pulse Ox Pulse Ox 11/14/17 16:16 96 11/14/17 15:56 158/77 H 96 11/14/17 14:33 159/75 H 98 100 11/14/17 12:00 100 11/14/17 10:55 99 11/14/17 10:00 11/14/17 08:00 100 11/14/17 07:08 11/14/17 06:00 Weight Admit Weight 155 lb Weight 160 lb 11.472 oz Most Recent Monitor Data Heart Rate from ECG 66 NIBP 155/77 NIBP BP-Mean 93 Respiration from ECG 26 SpO2 99 I&O: 11/13/17 11/14/17 11/15/17 06:59 06:59 06:59 Intake Total 1653 3669 937 Output Total 923 1300 390 Balance 730 2369 547 Result Diagrams: 11/14/17 03:14 11/14/17 03:14 Phys Exam - Physical Examination HEENT: PERRLA, moist MMs, sclera anicteric, TM's clear, oral pharynx no lesions , 2+ tonsils Neck: no nodes, no JVD, supple, full ROM Respiratory: no wheezing, no rales, no rhonchi, wheezing present, clear to auscultation bilateral Cardiovascular: RRR, no significant murmur, no rub, gallop, irregular Musculoskeletal: no edema, pulses present, edema present Neurological: non-focal, normal sensation, moves all 4 limbs Dx/Plan (1) Hemorrhagic stroke Code(s): I61.9 - NONTRAUMATIC INTRACEREBRAL HEMORRHAGE, UNSPECIFIED Status: Acute (2) HTN (hypertension) Code(s): I10 - ESSENTIAL (PRIMARY) HYPERTENSION Status: Acute (3) Fever Code(s): R50.9 - FEVER, UNSPECIFIED Status: Acute - Plan Spoke with family and they want to make pt DNR and want to -: extubate the pt and see how she does. They do not want a feeding and -: a trach per their wishes. * . Review of Systems - Review of Systems Other: unable to obtain - Medications/Allergies Allergies/Adverse Reactions: Allergies Allergy/AdvReac Type Severity Reaction Status Date / Time No Known Drug Allergies Allergy Unknown Verified 01/11/13 05:28 Medications: Current Medications Acetaminophen (Tylenol) 650 mg PO Q6H PRN PRN Reason: Fever > 101 or Headache Last Admin: 11/13/17 20:33 Dose: 650 mg Al Hydroxide/Mg Hydroxide (Maalox) 30 ml PO QIDPRN PRN PRN Reason: Dyspepsia Atorvastatin Calcium (Lipitor) 20 mg PO DAILY [facility] Last Admin: 11/14/17 08:53 Dose: 20 mg Bisacodyl (Dulcolax) 10 mg [place] DAILYPRN PRN PRN Reason: Constipation Cyclosporine (Restasis) 0 ml EA EYE BIDPRN PRN PRN Reason: Dry Eyes Docusate Sodium (Colace) 100 mg PO BIDPRN PRN PRN Reason: Constipation Famotidine (Pepcid) 20 mg SLOW IVP BID [facility] Last Admin: 11/14/17 08:54 Dose: 20 mg Sodium Chloride (Normal Saline 0.9%) 1,000 mls @ 80 mls/hr IV .[id number] [facility] Last Admin: 11/14/17 17:04 Dose: 1,000 mls Fentanyl Citrate 2,000 mcg/ (Sodium Chloride) 100 mls @ 0 mls/hr IV INF BIMAL; Per Protocol PRN Reason: Protocol Stop: 12/10/17 22:37 Fentanyl Citrate (Fentanyl Bolus) 250 mls @ 0 mls/hr IVPB PRN PRN; As Directed PRN Reason: Breakthrough pain/agitation Stop: 12/10/17 22:37 Nicardipine HCl 25 mg/ Sodium (Chloride) 250 mls @ 0 mls/hr IVPB INF PRN; Protocol; Titrate PRN Reason: For SBP > 150 or DBP > 90 Last Admin: 11/11/17 16:44 Dose: 250 mls Cefepime HCl 2 gm/ Sodium (Chloride) 100 mls @ 200 mls/hr IVPB Q12HR BIMAL Last Admin: 11/14/17 08:54 Dose: 100 mls Lorazepam (Ativan) 2 mg SLOW IVP Q1H PRN PRN Reason: Breakthrough agitation Stop: 12/10/17 22:37 Magnesium Hydroxide (Milk Of Magnesium) 30 ml PO BIDPRN PRN PRN Reason: Constipation Miscellaneous Medication (Ventilator Sedation Protocol) 1 each FS ONE [facility] Stop: 12/10/17 22:31 Morphine Sulfate (Morphine) 2 mg SLOW IVP Q1H PRN PRN Reason: BREAKTHROUGH PAIN/AGITATION Stop: 12/12/17 21:45 Last Admin: 11/14/17 09:09 Dose: 2 mg Discontinue Previous Narcotic Pain Medications And Benzodiazepines 1 each FS .ONE [facility] Stop: 12/10/17 22:37 Ondansetron HCl (Zofran) 4 mg IVP BIDPRN PRN PRN Reason: Nausea/Vomiting Potassium Chloride (Klor-Con) 40 meq PER TUBE BID [facility] Propofol (Diprivan) 1,000 mg IV INF PRN; Protocol PRN Reason: TO ACHIEVE GOAL RASS Stop: 12/10/17 22:37 Last Admin: 11/11/17 05:53 Dose: 1,000 mg Propofol (Diprivan Bolus) 20 mg IV Q5MIN PRN PRN Reason: BREAKTHROUGH AGITATION Stop: 12/10/17 22:37 Sodium Chloride (Flush - Normal Saline) 10 ml IVF PRN PRN PRN Reason: Saline Flush
[2017-11-14] MEDS ORDERED: Potassium Phosphate 15 MMOL in Sodium Chloride 0.9% 250 ML 250 ML IVPB SCH (19:00)
[2017-11-14] MEDS ORDERED: Lorazepam 2 MG/ML VIAL SLOW IVP PRN (21:01)
[2017-11-14] MEDS: hydrALAZINE 20 MG/ML VIAL SLOW IVP PRN (21:40)
[2017-11-15 06:16] LABS: #Eosinphils 0.1 thou/uL (0.0-0.7); #Lymphocytes 0.9 thou/uL (1.20-3.40); #Monocytes 0.9 thou/uL (0.11-0.59); #Neutrophils 7.5 thou/uL (1.40-6.50); %Basophils 0.2 % (0.0-1.0); %Eosinophils 0.6 % (0.0-10.0); %Lymphocytes 9.6 % (21.0-51.0); %Monocytes 9.9 % (0.0-10.0); %Neutrophils 79.6 % (42.0-75.0); Mean Corpuscular HGB CONC 33.3 g/dL (32.0-36.0); Mean Corpuscular Hemoglobin 29.4 pg (27.0-31.0); Mean Corpuscular Volume 88.2 fL (78.0-98.0); Mean Platelet Volume 9.7 fL (7.4-10.4); Platelet Count 140 thou/uL (130-400); RBC Distribution Width 12.2 % (11.5-14.5); Red Blood Cell (RBC) Count 4.41 mill/uL (4.20-5.40); White Blood Cell (WBC) Count 9.4 thou/uL (4.8-10.8)
[2017-11-15 06:41] LABS: Anion Gap 12 mmol/L (10-20); BUN (Urea Nitrogen) 9 mg/dL (9.8-20.1); Calc. Creatinine Clearance 92 mL/min (70-130); Calcium 8.8 mg/dL (7.8-10.44); Carbon Dioxide 20 mmol/L (23-31); Chloride 105 mmol/L (98-107); Estimated GFR-MDRD Greater than 90; Glucose 109 mg/dL (83-110); Potassium 3.4 mmol/L (3.5-5.1); Sodium 134 mmol/L (136-145)
[2017-11-15] MEDS: hydrALAZINE 20 MG/ML VIAL SLOW IVP PRN ×2 (08:27→20:19)
[2017-11-15] MEDS: Famotidine/PF 20 mg/2ml Vial SLOW IVP SCH ×2 (09:09→21:10)
[2017-11-15] MEDS: Sodium Chloride 0.9% 1,000 ML IV SCH ×2 (09:11→23:24)
[2017-11-15] MEDS: Cefepime 2 GM in Sodium Chloride 0.9% 100 ML IVPB SCH (09:12)
[2017-11-15] MEDS: Atorvastatin Calcium 20 MG TAB PO SCH (09:17)
--- NOTE | 2017-11-15 10:39 | PRG ---
DATE OF SERVICE: 11/15/2017 SUBJECTIVE: Ms. Barbra Ptael was a DNR. She was extubated yesterday as per her daughter's wishes. OBJECTIVE: VITAL SIGNS: Sats are 96% on 2 liters, blood pressure 170/63, temperature 98. GENERAL: She is minimally responsive. CHEST: Reveals decreased breath sounds without any wheezing. CARDIAC: Normal S1, normal S2, no gallops. ABDOMEN: Soft, no masses. LABORATORY DATA: Appropriate. IMPRESSION: Intracerebral thalamic hemorrhage. PLAN: I had already discussed with the family at length regarding DNR status. I see no reason to or denise a Speech here. She probably needs inpatient hospice. There is a daughter at the bedside along with the patient's brother. I told them overall prognosis w as guarded.
[2017-11-15] MEDS ORDERED: Ketorolac Tromethamine 30 MG/ML VIAL IVP SCH (12:45)
--- NOTE | 2017-11-15 16:16 | PDOC.PN ---
- Subjective Encounter Start Date: 11/15/17 Encounter Start Time: 11:00 Subjective: pt in bed asleep not very arousable - Objective Resuscitation Status: Resuscitation Status DNR:Do Not Resuscitate Vital Signs & Weight: Vital Signs (12 hours) Temp Pulse Pulse Pulse Resp BP BP 11/15/17 13:40 59 L 11/15/17 11:35 98.7 F 65 18 11/15/17 08:37 62 20 11/15/17 08:30 95 62 134/83 11/15/17 08:27 66 171/63 H 11/15/17 08:00 98.1 F 62 20 11/15/17 07:35 98.1 F 66 18 BP BP Pulse Ox Pulse Ox Pulse Ox 11/15/17 13:40 164/76 H 99 11/15/17 11:35 156/72 H 95 11/15/17 08:37 128/65 96 11/15/17 08:30 128/65 93 L 96 11/15/17 08:27 11/15/17 08:00 96 11/15/17 07:35 171/73 H 94 L Weight Admit Weight 155 lb Weight 160 lb 11.472 oz Most Recent Monitor Data Heart Rate from ECG 66 NIBP 155/77 NIBP BP-Mean 93 Respiration from ECG 26 SpO2 99 I&O: 11/14/17 11/15/17 11/16/17 06:59 06:59 06:59 Intake Total 3669 2009.5 Output Total 1300 4040 Balance 2369 -2030.5 Result Diagrams: 11/15/17 05:54 11/15/17 05:54 Phys Exam - Physical Examination HEENT: PERRLA, moist MMs, sclera anicteric, TM's clear, oral pharynx no lesions , 2+ tonsils Neck: no nodes, no JVD, supple, full ROM mild rhonchi all over Cardiovascular: RRR, no significant murmur, no rub, gallop, irregular Gastrointestinal: soft, non-tender, no distention, positive bowel sounds pt drowsy but did PT today per family Dx/Plan (1) Hemorrhagic stroke Code(s): I61.9 - NONTRAUMATIC INTRACEREBRAL HEMORRHAGE, UNSPECIFIED Status: Acute (2) HTN (hypertension) Code(s): I10 - ESSENTIAL (PRIMARY) HYPERTENSION Status: Acute (3) Fever Code(s): R50.9 - FEVER, UNSPECIFIED Status: Acute - Plan pt very drowsy today -: continue zosyn for now if pt's mentation does not improve will -: check cxr in am and UA. NG tube in am if pt fails swallow eval in am * . Review of Systems - Review of Systems Other: unable to obtain - Medications/Allergies Allergies/Adverse Reactions: Allergies Allergy/AdvReac Type Severity Reaction Status Date / Time No Known Drug Allergies Allergy Unknown Verified 01/11/13 05:28 Medications: Current Medications Acetaminophen (Tylenol) 650 mg PO Q6H PRN PRN Reason: Fever > 101 or Headache Last Admin: 11/13/17 20:33 Dose: 650 mg Acetaminophen (Tylenol) 650 mg [place] Q6H PRN PRN Reason: Headache/Fever or Pain Al Hydroxide/Mg Hydroxide (Maalox) 30 ml PO QIDPRN PRN PRN Reason: Dyspepsia Atorvastatin Calcium (Lipitor) 20 mg PO DAILY [facility] Last Admin: 11/15/17 09:17 Dose: Not Given Bisacodyl (Dulcolax) 10 mg [place] DAILYPRN PRN PRN Reason: Constipation Cyclosporine (Restasis) 0 ml EA EYE BIDPRN PRN PRN Reason: Dry Eyes Docusate Sodium (Colace) 100 mg PO BIDPRN PRN PRN Reason: Constipation Famotidine (Pepcid) 20 mg SLOW IVP BID [facility] Last Admin: 11/15/17 09:09 Dose: 20 mg Hydralazine HCl (Apresoline) 10 mg SLOW IVP Q4H PRN PRN Reason: SBP Greater Than 170 Last Admin: 11/15/17 08:27 Dose: 10 mg Sodium Chloride (Normal Saline 0.9%) 1,000 mls @ 80 mls/hr IV .[id number] [facility] Last Admin: 11/15/17 09:11 Dose: 1,000 mls Piperacillin Sod/Tazobactam (Sod 3.375 gm/ Sodium Chloride) 100 mls @ 200 mls/ hr IVPB Q6HR [facility] Magnesium Hydroxide (Milk Of Magnesium) 30 ml PO BIDPRN PRN PRN Reason: Constipation Ondansetron HCl (Zofran) 4 mg IVP BIDPRN PRN PRN Reason: Nausea/Vomiting Potassium Chloride (Klor-Con) 40 meq PER TUBE BID [facility] Last Admin: 11/15/17 09:17 Dose: Not Given Sodium Chloride (Flush - Normal Saline) 10 ml IVF PRN PRN PRN Reason: Saline Flush
[2017-11-15] MEDS ORDERED: Potassium Phosphate 9 MMOL in Sodium Chloride 0.9% 100 ML IVPB SCH (16:30)
[2017-11-15] MEDS: Piperacillin/Tazobactam 3.375 GM in Sodium Chloride 0.9% 100 ML IVPB SCH ×2 (18:39→23:30)
[2017-11-16] MEDS: Piperacillin/Tazobactam 3.375 GM in Sodium Chloride 0.9% 100 ML IVPB SCH ×4 (05:36→23:34)
[2017-11-16 06:25] LABS: Anion Gap 15 mmol/L (10-20); BUN (Urea Nitrogen) 11 mg/dL (9.8-20.1); Calc. Creatinine Clearance 85 mL/min (70-130); Calcium 8.9 mg/dL (7.8-10.44); Carbon Dioxide 18 mmol/L (23-31); Chloride 104 mmol/L (98-107); Estimated GFR-MDRD Greater than 90; Glucose 112 mg/dL (83-110); Phosphorus 2.5 mg/dL (2.3-4.7); Potassium 3.1 mmol/L (3.5-5.1); Sodium 134 mmol/L (136-145)
[2017-11-16] MEDS: Sodium Chloride 0.9% 1,000 ML IV SCH ×2 (07:46→17:47)
[2017-11-16] MEDS: Atorvastatin Calcium 20 MG TAB PO SCH (07:47)
[2017-11-16] MEDS: hydrALAZINE 20 MG/ML VIAL SLOW IVP PRN ×3 (07:52→23:33)
[2017-11-16] MEDS ORDERED: Potassium Chloride 20 MEQ in Premix Bag 1 BAG IVPB SCH ×2 (08:00→12:00)
[2017-11-16] MEDS: Famotidine/PF 20 mg/2ml Vial SLOW IVP SCH ×2 (09:09→23:32)
--- NOTE | 2017-11-16 10:04 | PRG ---
DATE OF SERVICE: 11/16/2017 She is slightly more responsive. She has got a cough. PHYSICAL EXAMINATION: VITAL SIGNS: Blood pressure is elevated at 204/90, pulse 98, respirations 20, temperature 98.4, sats 97% on room air. CHEST: Anterior rhonchi. CARDIAC: Normal S1, S2, no gallops. ABDOMEN: Soft, no mass. White count 3000. IMPRESSION: 1. Status post cerebrovascular accident. 2. Retained secretions. PLAN: She is on broad spectrum antibiotic Zosyn which I will continue. Family now states they would like a trial of feeding tube. They do not want a PEG, but they agreed to put a Dobbhoff or a NG tub e. I discussed with the nurses at the bedside. It is okay to start feedings, if she pulls the tube out, I would then refrain from restarting it again. She was started on antibiotics without any obvious source of infection. I will follow at a distance. Please call as needed.
[2017-11-16] MEDS: Haloperidol Lactate 5 MG/ML VIAL SLOW IVP PRN ×2 (10:21→19:00)
[2017-11-16] MEDS ORDERED: Sodium Bicarbonate Tab 325 MG TAB PER TUBE PRN (13:45)
[2017-11-16] MEDS ORDERED: Pancrelipase DR 12000 1 CAP FS PRN (13:45)
[2017-11-16 14:54] LABS: Bilirubin Negative (Negative); Blood, Urine Trace (Negative); Clarity CLEAR (Clear); Glucose, Urine (Dipstick) Negative (Negative); Leukocyte Negative (Negative); Nitrite Negative (Negative); Protein, Urine (Dipstick) 100 mg/dL (Neg-Trace); Specific Gravity, Urine 1.029 (1.002-1.036); pH, Urine 5.5 (5.0-9.0)
[2017-11-16 14:57] LABS: Bacteria/HPF None Seen HPF (None Seen); Hyaline Casts/LPF 4-6 HYALINE CAST LPF (0-3 Hyaline); Pathc Cast-AUWi Flag 2.03 (0-2.49)
[2017-11-16 15:04] LABS: Actual Bicarbonate (HCO3a) 19.9 mEq/L (22-28); CO2 Tension 25.2 mmHg (35.0-45.0); O2 Tension (PaO2) 102.5 mmHg (> 70.0); pH, Arterial 7.52 (7.35-7.45)
[2017-11-16 15:05] LABS: Base Excess (BEa) -1.3 mEq/L (-2.0 to +3.0); Calcium, Ionized 1.1 mmol/L (1.12-1.30); Hemoglobin (Hb) 14.3 g/dL (12.0-16.0)
[2017-11-16 15:06] LABS: Puncture Site LRA
--- NOTE | 2017-11-16 15:39 | RAD ---
CHEST ONE VIEW: 11/16/17 HISTORY: Dyspnea. Followup. COMPARISON: 11/14/17. FINDINGS: The cardiac silhouette remains magnified by projection. Pulmonary vasculature is upper limits of norm al. Patchy bibasilar air space opacity has lessened since the previous exam. Mediastinum is midline. Nasogastric tube descends to the abdomen. Endotracheal catheter is no longer visible. No evidence of pneumothorax. IMPRESSION: Interval extubation. Improved aeration of the lung bases. Other findings are stable. POS: TPC
[2017-11-16 17:06] LABS: Renal Epithelial None Seen HPF (0-3); Transitional Epithelial NONE SEEN HPF (0-3)
--- NOTE | 2017-11-16 21:23 | PDOC.PN ---
- Subjective Encounter Start Date: 11/16/17 Encounter Start Time: 11:30 Subjective: pt up in bed still very drowsy - Objective Resuscitation Status: Resuscitation Status DNR:Do Not Resuscitate Vital Signs & Weight: Vital Signs (12 hours) Temp Pulse Resp BP BP Pulse Ox 11/16/17 19:00 98.2 F 73 16 131/60 96 11/16/17 17:42 69 194/83 H 11/16/17 15:00 98.9 F 69 20 194/83 H 97 11/16/17 11:00 98.1 F 66 20 145/72 H 97 Weight Admit Weight 155 lb Weight 160 lb 11.472 oz Most Recent Monitor Data Heart Rate from ECG 66 NIBP 155/77 NIBP BP-Mean 93 Respiration from ECG 26 SpO2 99 I&O: 11/15/17 11/16/17 11/17/17 06:59 06:59 06:59 Intake Total 2009.5 2062 1260 Output Total 4040 1450 700 Balance -2030.5 612 560 Result Diagrams: 11/15/17 05:54 11/16/17 05:56 Phys Exam - Physical Examination Neck: no nodes, no JVD, supple, full ROM mild rhonchi all over Cardiovascular: RRR, no significant murmur, no rub, gallop, irregular Gastrointestinal: soft, non-tender, no distention, positive bowel sounds Musculoskeletal: no edema, pulses present, edema present Dx/Plan (1) Hemorrhagic stroke Code(s): I61.9 - NONTRAUMATIC INTRACEREBRAL HEMORRHAGE, UNSPECIFIED Status: Acute (2) HTN (hypertension) Code(s): I10 - ESSENTIAL (PRIMARY) HYPERTENSION Status: Acute (3) Fever Code(s): R50.9 - FEVER, UNSPECIFIED Status: Acute - Plan will continue abx -: spoke with family will get abg, cxr and ua since pt is still drowsy -: Family agreeded on ng tube and start nutrition * . Review of Systems - Review of Systems Other: unable to obtain - Medications/Allergies Allergies/Adverse Reactions: Allergies Allergy/AdvReac Type Severity Reaction Status Date / Time No Known Drug Allergies Allergy Unknown Verified 01/11/13 05:28 Medications: Current Medications Acetaminophen (Tylenol) 650 mg PO Q6H PRN PRN Reason: Fever > 101 or Headache Last Admin: 11/13/17 20:33 Dose: 650 mg Acetaminophen (Tylenol) 650 mg [place] Q6H PRN PRN Reason: Headache/Fever or Pain Al Hydroxide/Mg Hydroxide (Maalox) 30 ml PO QIDPRN PRN PRN Reason: Dyspepsia Lipase/Protease/Amylase (Kaylin Chatman [id number]) 1 cap FS .PER PROTOCOL PRN PRN Reason: TUBE OCCLUSION PROTOCOL Atorvastatin Calcium (Lipitor) 20 mg PO DAILY [facility] Last Admin: 11/16/17 07:47 Dose: Not Given Bisacodyl (Dulcolax) 10 mg [place] DAILYPRN PRN PRN Reason: Constipation Cyclosporine (Restasis) 0 ml EA EYE BIDPRN PRN PRN Reason: Dry Eyes Docusate Sodium (Colace) 100 mg PO BIDPRN PRN PRN Reason: Constipation Famotidine (Pepcid) 20 mg SLOW IVP BID [facility] Last Admin: 11/16/17 09:09 Dose: 20 mg Haloperidol Lactate (Haldol) 5 mg SLOW IVP Q8HR PRN PRN Reason: Agitation Last Admin: 11/16/17 19:00 Dose: 5 mg Hydralazine HCl (Apresoline) 10 mg SLOW IVP Q4H PRN PRN Reason: SBP Greater Than 170 Last Admin: 11/16/17 17:42 Dose: 10 mg Sodium Chloride (Normal Saline 0.9%) 1,000 mls @ 80 mls/hr IV .[id number] [facility] Last Admin: 11/16/17 17:47 Dose: 1,000 mls Piperacillin Sod/Tazobactam (Sod 3.375 gm/ Sodium Chloride) 100 mls @ 200 mls/ hr IVPB Q6HR [facility] Last Admin: 11/16/17 17:42 Dose: 100 mls Magnesium Hydroxide (Milk Of Magnesium) 30 ml PO BIDPRN PRN PRN Reason: Constipation Metoprolol Succinate (Toprol Xl) 25 mg PO QPM [facility] Ondansetron HCl (Zofran) 4 mg IVP BIDPRN PRN PRN Reason: Nausea/Vomiting Potassium Chloride (Klor-Con) 40 meq PER TUBE BID [facility] Last Admin: 11/16/17 08:14 Dose: Not Given Sodium Bicarbonate (Bicarbonate, Sodium) 650 mg PER TUBE .PER PROTOCOL PRN PRN Reason: ENTERAL TUBE OCCLUSION Sodium Chloride (Flush - Normal Saline) 10 ml IVF PRN PRN PRN Reason: Saline Flush Last Admin: 11/16/17 19:00 Dose: 10 ml
--- NOTE | 2017-11-17 05:20 | PDOC.EVN ---
Event Note - Event Note Event Note: pt needing mittens restrains since pt is pulling NGTand interfeering with medical treatment
[2017-11-17] MEDS: Sodium Chloride 0.9% 1,000 ML IV SCH (05:52)
[2017-11-17] MEDS: Piperacillin/Tazobactam 3.375 GM in Sodium Chloride 0.9% 100 ML IVPB SCH ×2 (05:52→12:30)
[2017-11-17] MEDS: Ketorolac Tromethamine 30 MG/ML VIAL IVP PRN ×2 (08:44→20:58)
[2017-11-17] MEDS: Atorvastatin Calcium 20 MG TAB PO SCH (09:05)
[2017-11-17] MEDS: Famotidine/PF 20 mg/2ml Vial SLOW IVP SCH (09:54)
--- NOTE | 2017-11-17 14:01 | PDOC.PN ---
- Subjective Encounter Start Date: 11/17/17 Encounter Start Time: 11:30 Subjective: pt up in bed drowsy arousable minimally - Objective Resuscitation Status: Resuscitation Status DNR:Do Not Resuscitate Vital Signs & Weight: Vital Signs (12 hours) Temp Pulse Resp BP Pulse Ox 11/17/17 12:29 160/82 H 11/17/17 08:00 98.2 F 86 22 H 156/92 H 95 11/17/17 04:00 98.2 F 82 16 140/81 96 Weight Admit Weight 155 lb Weight 160 lb 11.472 oz Most Recent Monitor Data Heart Rate from ECG 66 NIBP 155/77 NIBP BP-Mean 93 Respiration from ECG 26 SpO2 99 I&O: 11/16/17 11/17/17 11/18/17 06:59 06:59 06:59 Intake Total 2062 1260 Output Total 1450 700 Balance 612 560 Result Diagrams: 11/15/17 05:54 11/16/17 05:56 Phys Exam - Physical Examination HEENT: PERRLA, moist MMs, sclera anicteric, TM's clear, oral pharynx no lesions , 2+ tonsils mild rhonchi to upper lung area Cardiovascular: RRR, no significant murmur, no rub, gallop, irregular Gastrointestinal: soft, non-tender, no distention, positive bowel sounds left side weakness Dx/Plan (1) Hemorrhagic stroke Code(s): I61.9 - NONTRAUMATIC INTRACEREBRAL HEMORRHAGE, UNSPECIFIED Status: Acute (2) HTN (hypertension) Code(s): I10 - ESSENTIAL (PRIMARY) HYPERTENSION Status: Acute (3) Fever Code(s): R50.9 - FEVER, UNSPECIFIED Status: Acute (4) Aspiration pneumonia Code(s): J69.0 - PNEUMONITIS DUE TO INHALATION OF FOOD AND VOMIT Status: Acute - Plan abg/cxr and ua normal -: tube feed started, pt's family does not want trach/peg. -: will get ct head to make sure no acute process. -: palliative care team has been working with this pt. she is still very -: drowsy. will change abx to po. * . Review of Systems - Review of Systems Other: unable to obtain - Medications/Allergies Allergies/Adverse Reactions: Allergies Allergy/AdvReac Type Severity Reaction Status Date / Time No Known Drug Allergies Allergy Unknown Verified 01/11/13 05:28 Medications: Current Medications Acetaminophen (Tylenol) 650 mg PO Q6H PRN PRN Reason: Fever > 101 or Headache Last Admin: 11/13/17 20:33 Dose: 650 mg Acetaminophen (Tylenol) 650 mg [place] Q6H PRN PRN Reason: Headache/Fever or Pain Al Hydroxide/Mg Hydroxide (Maalox) 30 ml PO QIDPRN PRN PRN Reason: Dyspepsia Lipase/Protease/Amylase (Kaylin Chatman [id number]) 1 cap FS .PER PROTOCOL PRN PRN Reason: TUBE OCCLUSION PROTOCOL Atorvastatin Calcium (Lipitor) 20 mg PO DAILY [facility] Last Admin: 11/17/17 09:05 Dose: Not Given Bisacodyl (Dulcolax) 10 mg [place] DAILYPRN PRN PRN Reason: Constipation Cyclosporine (Restasis) 0 ml EA EYE BIDPRN PRN PRN Reason: Dry Eyes Docusate Sodium (Colace) 100 mg PO BIDPRN PRN PRN Reason: Constipation Famotidine (Pepcid) 20 mg SLOW IVP BID [facility] Last Admin: 11/17/17 09:54 Dose: 20 mg Haloperidol Lactate (Haldol) 5 mg SLOW IVP Q8HR PRN PRN Reason: Agitation Last Admin: 11/16/17 19:00 Dose: 5 mg Hydralazine HCl (Apresoline) 10 mg SLOW IVP Q4H PRN PRN Reason: SBP Greater Than 170 Last Admin: 11/16/17 23:33 Dose: 10 mg Sodium Chloride (Normal Saline 0.9%) 1,000 mls @ 80 mls/hr IV .[id number] REPLACED [facility] Last Admin: 11/17/17 05:52 Dose: 1,000 mls Piperacillin Sod/Tazobactam (Sod 3.375 gm/ Sodium Chloride) 100 mls @ 200 mls/ hr IVPB Q6HR [facility]PL[facility]ED [facility] Last Admin: 11/17/17 12:30 Dose: 100 mls Ketorolac Tromethamine (Toradol) 15 mg IVP Q6H PRN PRN Reason: Pain Stop: 11/22/17 08:28 Last Admin: 11/17/17 08:44 Dose: 15 mg Magnesium Hydroxide (Milk Of Magnesium) 30 ml PO BIDPRN PRN PRN Reason: Constipation Metoprolol Succinate (Toprol Xl) 25 mg PO QPM REPLACED [facility] Last Admin: 11/16/17 23:35 Dose: Not Given Ondansetron HCl (Zofran) 4 mg IVP BIDPRN PRN PRN Reason: Nausea/Vomiting Potassium Chloride (Klor-Con) 40 meq PER TUBE BID [facility]PL[facility] Last Admin: 11/17/17 09:54 Dose: 40 meq Scopolamine (Transderm Scop) 1.5 mg TOP Q3D REPLACED BY [facility] Sodium Bicarbonate (Bicarbonate, Sodium) 650 mg PER TUBE .PER PROTOCOL PRN PRN Reason: ENTERAL TUBE OCCLUSION Sodium Chloride (Flush - Normal Saline) 10 ml IVF PRN PRN PRN Reason: Saline Flush Last Admin: 11/16/17 19:00 Dose: 10 ml
[2017-11-17] MEDS: Scopolamine 1.5 mg/72 hour Patch TOP SCH (14:56)
--- NOTE | 2017-11-17 15:14 | CT ---
CT BRAIN: 11/17/2017 PROVIDED CLINICAL HISTORY: Follow-up intracranial hemorrhage. COMPARISON: 11/12/2017 FINDINGS: The ventricular system appears unchanged in size and morphology. Right lentiform nucleus parenchymal hematoma appears not significantly changed, with respect to the prior examination. Intraventricular hemorrhage is again noted, appearing overall not significantly changed in degree since the prior exa mination. There is minimal shift of the midline structures, which appears less than on the prior mone dy. The basilar cisterns appear patent. The extracranial soft tissues and osseous structures demons trate no acute findings. IMPRESSION: Right lentiform nucleus hemorrhage with intraventricular extension is redemonstrated, with no signifi cant interval change with respect to the prior examination. POS: ZACARIAS
[2017-11-17] MEDS ORDERED: Amoxicillin/Potassium Clav 875 MG TAB PO SCH (21:00)
[2017-11-17] MEDS: Amoxicillin/Potassium Clav 875 MG TAB PER TUBE SCH (21:00)
[2017-11-17] MEDS: Famotidine 20 MG TAB PO SCH (21:01)
[2017-11-18] MEDS: hydrALAZINE 20 MG/ML VIAL SLOW IVP PRN ×2 (07:58→19:01)
[2017-11-18] MEDS: Famotidine 20 MG TAB PO SCH (09:12)
[2017-11-18] MEDS: Amoxicillin/Potassium Clav 875 MG TAB PER TUBE SCH ×2 (09:12→22:48)
[2017-11-18] MEDS: Atorvastatin Calcium 20 MG TAB PO SCH (09:12)
[2017-11-18] MEDS ORDERED: Acetaminophen 650 MG/20.3 ML UDCUP PO PRN (10:00)
[2017-11-18] MEDS ORDERED: Docusate Sodium 100 MG/10 ML UDCUP PER TUBE PRN (10:15)
[2017-11-18] MEDS ORDERED: Haloperidol Lactate 5 MG/ML VIAL SLOW IVP PRN (11:40)
--- NOTE | 2017-11-18 11:42 | PDOC.PN ---
- Subjective Encounter Start Date: 11/18/17 (f/u stroke) Encounter Start Time: 11:40 Subjective: Pt stood up once with PT today. Family notes she is more alert -: able to point and communicate with questions. Using -: right side, nods head. - Objective Resuscitation Status: Resuscitation Status DNR:Do Not Resuscitate Vital Signs & Weight: Vital Signs (12 hours) Temp Pulse Resp BP Pulse Ox 11/18/17 08:00 98.2 F 74 18 11/18/17 07:58 74 11/18/17 07:45 98.2 F 74 18 189/86 H 98 Weight Admit Weight 155 lb Weight 160 lb 11.472 oz Most Recent Monitor Data Heart Rate from ECG 66 NIBP 155/77 NIBP BP-Mean 93 Respiration from ECG 26 SpO2 99 I&O: 11/17/17 11/18/17 11/19/17 06:59 06:59 06:59 Intake Total 1260 630 Output Total 700 1000 1450 Balance 560 -1000 -820 Result Diagrams: 11/18/17 12:35 11/18/17 12:35 Phys Exam - Physical Examination Constitutional: NAD Respiratory: no wheezing, no rales, no rhonchi, clear to auscultation bilateral Cardiovascular: RRR, no significant murmur Gastrointestinal: soft, non-tender, positive bowel sounds Musculoskeletal: no edema left arm appears flacid Deviation from normal: pt with eyes closed - sitting up with support of physical therapy Skin: no rash Dx/Plan (1) Hemorrhagic stroke Code(s): I61.9 - NONTRAUMATIC INTRACEREBRAL HEMORRHAGE, UNSPECIFIED Status: Acute (2) Hypokalemia Code(s): E87.6 - HYPOKALEMIA Status: Acute (3) Dry eyes Status: Chronic (4) Aspiration pneumonia Code(s): J69.0 - PNEUMONITIS DUE TO INHALATION OF FOOD AND VOMIT Status: Acute (5) HTN (hypertension) Code(s): I10 - ESSENTIAL (PRIMARY) HYPERTENSION Status: Chronic Qualifiers: Hypertension type: essential hypertension Qualified Code(s): I10 - Essential (primary) hypertension - Plan * bp not well controlled - resume losartan at half normal dose * metoprolol xl cannot be crushed -change to tartrate at the same dose * recheck potassium and magnesium today * tube feeds not at goal - to titrate today. Pt was receiving hourly flushes - reviewed orders and it should be q4h. Check sodium with bmp today. . . watch for hyponatremia * * transfer to stroke unit * continue pt/ot and speech re-eval when able * * given that pt is improving - leave NG tube and continue tube feeds. 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 They also see improvement and pt able to understand and communicate - will reassess in a few days, as pt may change her mind * * Has been on antibiotics since November 13 - now day 6, will plan for 8 day course (Cefepime 11/14-11/15, Zosyn 11/13 - 11/17, Augment 11/17 - today) * * dry eyes -scheduled artificial tears. * * dvt prophy - scd's * gi prophy - on famotidine * code status DNR * * discussed care and plan with family who demonstrate understanding and agree. Total time with family meeting and encountr 35 minutes.
[2017-11-18] MEDS: Artificial Tears 18 DROP/0.9 ML EA EYE SCH ×3 (12:27→22:47)
[2017-11-18 13:02] LABS: #Eosinphils 0.2 thou/uL (0.0-0.7); #Lymphocytes 1.4 thou/uL (1.20-3.40); #Monocytes 1.5 thou/uL (0.11-0.59); #Neutrophils 8.3 thou/uL (1.40-6.50); %Basophils 0.2 % (0.0-1.0); %Eosinophils 1.9 % (0.0-10.0); %Lymphocytes 12.4 % (21.0-51.0); %Monocytes 13.1 % (0.0-10.0); %Neutrophils 72.5 % (42.0-75.0); Hemoglobin 15.7 g/dL (12.0-16.0); Mean Corpuscular HGB CONC 33.1 g/dL (32.0-36.0); Mean Corpuscular Hemoglobin 28.8 pg (27.0-31.0); Mean Corpuscular Volume 87.1 fL (78.0-98.0); Mean Platelet Volume 8.8 fL (7.4-10.4); Platelet Count 166 thou/uL (130-400); RBC Distribution Width 12.5 % (11.5-14.5); Red Blood Cell (RBC) Count 5.46 mill/uL (4.20-5.40); White Blood Cell (WBC) Count 11.4 thou/uL (4.8-10.8)
[2017-11-18 13:07] LABS: Anion Gap 14 mmol/L (10-20); BUN (Urea Nitrogen) 10 mg/dL (9.8-20.1); Calc. Creatinine Clearance 80 mL/min (70-130); Calcium 9.2 mg/dL (7.8-10.44); Carbon Dioxide 20 mmol/L (23-31); Chloride 102 mmol/L (98-107); Estimated GFR-MDRD 85; Glucose 112 mg/dL (83-110); Sodium 132 mmol/L (136-145)
[2017-11-18 13:16] LABS: Band 2 % (5-11); Eosinophils 1 % (0-10); Lymphocytes 8 % (21-51); Monocytes 7 % (0-10); Reactive Lymphocytes 8 % (0-10)
[2017-11-18] MEDS ORDERED: Metoprolol Tartrate 25 MG TAB PO SCH (21:00)
[2017-11-18] MEDS ORDERED: Losartan 25 MG TAB PO SCH (21:00)
[2017-11-18] MEDS: Famotidine 20 MG TAB PER TUBE SCH (22:48)
[2017-11-19 05:13] LABS: Anion Gap 16 mmol/L (10-20); BUN (Urea Nitrogen) 16 mg/dL (9.8-20.1); Calc. Creatinine Clearance 73 mL/min (70-130); Calcium 9.4 mg/dL (7.8-10.44); Carbon Dioxide 22 mmol/L (23-31); Chloride 101 mmol/L (98-107); Estimated GFR-MDRD 77; Glucose 174 mg/dL (83-110); Magnesium 2.1 mg/dL (1.6-2.6); Potassium 3.6 mmol/L (3.5-5.1); Sodium 135 mmol/L (136-145)
[2017-11-19] MEDS ORDERED: Metoprolol Tartrate 25 MG TAB PO SCH (07:15)
--- NOTE | 2017-11-19 07:31 | PDOC.PN ---
- Subjective Encounter Start Date: 11/19/17 (f/u stroke) Encounter Start Time: 07:25 Subjective: No overnight events noted. Daughter reports pt usually alert at this time -: is sleeping. Fever to 100.5 this morning. - Objective Resuscitation Status: Resuscitation Status DNR:Do Not Resuscitate Vital Signs & Weight: Vital Signs (12 hours) Temp Pulse Resp BP Pulse Ox 11/18/17 20:00 96.8 F L 86 20 172/79 H 94 L Weight Admit Weight 155 lb Weight 160 lb 11.472 oz Most Recent Monitor Data Heart Rate from ECG 66 NIBP 155/77 NIBP BP-Mean 93 Respiration from ECG 26 SpO2 99 I&O: 11/18/17 11/19/17 11/20/17 06:59 06:59 06:59 Intake Total 1380 780 Output Total 1000 2200 550 Balance -1000 -820 230 Result Diagrams: 11/19/17 04:49 11/19/17 04:49 Phys Exam - Physical Examination Constitutional: NAD Respiratory: no wheezing, no rales, no rhonchi Cardiovascular: RRR, no significant murmur Gastrointestinal: soft, non-tender, no distention, positive bowel sounds Musculoskeletal: no edema, pulses present No arousing to physical exam Deviation from normal: Unable to assess Skin: no rash Dx/Plan (1) Fever Code(s): R50.9 - FEVER, UNSPECIFIED Status: Acute (2) Hemorrhagic stroke Code(s): I61.9 - NONTRAUMATIC INTRACEREBRAL HEMORRHAGE, UNSPECIFIED Status: Acute (3) Hypokalemia Code(s): E87.6 - HYPOKALEMIA Status: Resolved (4) Dry eyes Status: Chronic (5) Aspiration pneumonia Code(s): J69.0 - PNEUMONITIS DUE TO INHALATION OF FOOD AND VOMIT Status: Acute (6) HTN (hypertension) Code(s): I10 - ESSENTIAL (PRIMARY) HYPERTENSION Status: Chronic Qualifiers: Hypertension type: essential hypertension Qualified Code(s): I10 - Essential (primary) hypertension - Plan * Fever - on antibiotics. CXR, blood and urine cultures, remove pruett cath * * bp not well controlled - losartan resumed yesterday, will increase to home dose of 50 mg bid and slightly increase the metoprolol * Potassium normal, tube feeds at goal, change daily potassium to 20 meq * * tube feeds at goal and water flushes corrected to q4h with improvement in hyponatremia * * stroke unit does not have a bed - pt to receive the same level of therapy/ care minus telemetry monitoring. Coordinate speech therapy eval when pt is awake/alert * continue NG tube and monitor progress with activity, ability to swallow. 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 Reassess in a few days as family thinks the patient is aware/alert and decision for peg can be discussed if swallowing does not improve. * * Has been on antibiotics since November 13 - now day 7. Was planning on 8 day course, will need to reassess with this morning's fever. (Cefepime 11/14-11/15, Zosyn 11/13 - 11/17, Augment 11/17 - today) * * dry eyes -artificial tears. * * dvt prophy - scd's * gi prophy - on famotidine * code status DNR * * discussed care and plan with one daughter and RN who demonstrates understanding and agree.
[2017-11-19 07:59] LABS: Band 3 % (5-11); Eosinophils 2 % (0-10); Hemoglobin 14.6 g/dL (12.0-16.0); Lymphocytes 11 % (21-51); MDiff Complete? YES; Mean Corpuscular HGB CONC 34.8 g/dL (32.0-36.0); Mean Corpuscular Hemoglobin 30.3 pg (27.0-31.0); Mean Corpuscular Volume 86.9 fL (78.0-98.0); Mean Platelet Volume 8.2 fL (7.4-10.4); Monocytes 10 % (0-10); Neutrophil 74 % (42-75); Platelet Count 226 thou/uL (130-400); RBC Distribution Width 12.3 % (11.5-14.5); Red Blood Cell (RBC) Count 4.82 mill/uL (4.20-5.40); White Blood Cell (WBC) Count 12.7 thou/uL (4.8-10.8)
[2017-11-19] MEDS: Losartan 25 MG TAB PO SCH ×2 (09:16→20:37)
[2017-11-19] MEDS: Amoxicillin/Potassium Clav 875 MG TAB PER TUBE SCH (09:16)
[2017-11-19] MEDS: Famotidine 20 MG TAB PER TUBE SCH ×2 (09:17→20:37)
[2017-11-19] MEDS: Atorvastatin Calcium 20 MG TAB PER TUBE SCH (09:18)
[2017-11-19] MEDS: Acetaminophen 650 MG Suppository PR PRN ×3 (09:26→20:36)
[2017-11-19] MEDS: Artificial Tears 18 DROP/0.9 ML EA EYE SCH ×4 (09:29→21:00)
--- NOTE | 2017-11-19 13:55 | RAD ---
RADIOGRAPH CHEST 1 VIEW: Date: 11/19/17 Time: 1210 HOURS HISTORY: 77-year-old female with new fever. COMPARISON: 11/16/17 at 1414 hours. FINDINGS: NG tube remains. New transversely oriented linear plate-like density at right lower lung zone represe nts subsegmental atelectasis. Additional new finding of mild haziness in the right lung base inferior to that. Additional new finding of streaky mild to moderate pulmonary densities in the medial aspect of the left lower lobe. Left ventricular configuration. No congestive heart failure or pulmonary brenda ma. No pneumothorax. IMPRESSION: New bilateral basilar pulmonary densities. Some of this represents subsegmental atelectasis. The left lower lobe densities could perhaps represent acute left lower lobe pneumonia. Follow-up is recommend ed. CEM [] POS: ZACARIAS
[2017-11-19] MEDS ORDERED: Vancomycin HCl 1 GM in Sodium Chloride 0.9% 250 ML 300 ML IVPB SCH (19:30)
--- NOTE | 2017-11-19 19:42 | PDOC.EVN ---
Event Note - Event Note Event Note: Pt's temperature has been elevated today to 100.5, most recent one is 101.2. Given this change, the abnormal chest xray, and the cough, as well as patient at high risk for recurrent pneumonia, discussed the risks/benefits of increasing to broad spectrum antibiotics to cover HCAP. Daughters agree. REviewed antibiotics and pt had been on Cefepime for 2 days, zosyn for 5 days before changing to augmentin. Will change to Vancomycin [facility] to dose, Cefepime as she was on this a shorter time, and Levquin for double pseudomonas coverage. Continue encouraging coughing and suctioning as pt tolerates. Reviewed other changes made with regards to anti-hypertensive meds today. Pt remains at high risk in current condition. No questions or further needs at end of evaluation.
[2017-11-19] MEDS: Cefepime 2 GM in Sodium Chloride 0.9% 100 ML IVPB SCH (20:35)
[2017-11-19] MEDS: Metoprolol Tartrate 25 MG TAB PO SCH (20:37)
[2017-11-19] MEDS: Clotrimazole 1 % Cream 30 GM TUBE TOP SCH (20:38)
[2017-11-19] MEDS ORDERED: Vancomycin HCl 1.5 GM in Sodium Chloride 0.9% 250 ML 300 ML IVPB SCH (21:00)
[2017-11-20] MEDS: hydrALAZINE 20 MG/ML VIAL SLOW IVP PRN ×2 (00:21→19:31)
[2017-11-20] MEDS: Acetaminophen 650 MG/20.3 ML UDCUP PO PRN (00:24)
[2017-11-20 04:57] LABS: Anion Gap 13 mmol/L (10-20); BUN (Urea Nitrogen) 16 mg/dL (9.8-20.1); Calc. Creatinine Clearance 71 mL/min (70-130); Calcium 9.2 mg/dL (7.8-10.44); Carbon Dioxide 24 mmol/L (23-31); Chloride 104 mmol/L (98-107); Estimated GFR-MDRD 75; Glucose 153 mg/dL (83-110); Potassium 3.6 mmol/L (3.5-5.1); Sodium 137 mmol/L (136-145)
[2017-11-20 05:06] LABS: Band 12 % (5-11); Eosinophils 2 % (0-10); Hemoglobin 14.2 g/dL (12.0-16.0); Lymphocytes 8 % (21-51); MDiff Complete? YES; Mean Corpuscular HGB CONC 34.9 g/dL (32.0-36.0); Mean Corpuscular Hemoglobin 30.7 pg (27.0-31.0); Mean Corpuscular Volume 88.1 fL (78.0-98.0); Mean Platelet Volume 7.8 fL (7.4-10.4); Monocytes 9 % (0-10); Neutrophil 67 % (42-75); PLT Morphology Comment Appears Adequate; Platelet Count 230 thou/uL (130-400); RBC Distribution Width 12.4 % (11.5-14.5); Reactive Lymphocytes 2 % (0-10); Red Blood Cell (RBC) Count 4.61 mill/uL (4.20-5.40); Toxic Granulation SLIGHT; White Blood Cell (WBC) Count 14.2 thou/uL (4.8-10.8)
[2017-11-20] MEDS: Cefepime 2 GM in Sodium Chloride 0.9% 100 ML IVPB SCH ×2 (08:00→20:55)
[2017-11-20] MEDS: Acetaminophen 650 MG Suppository PR PRN (10:03)
[2017-11-20] MEDS: Artificial Tears 18 DROP/0.9 ML EA EYE SCH ×4 (10:21→21:32)
[2017-11-20] MEDS: Atorvastatin Calcium 20 MG TAB PER TUBE SCH (10:23)
[2017-11-20] MEDS: Famotidine 20 MG TAB PER TUBE SCH ×2 (10:23→21:32)
[2017-11-20] MEDS: Metoprolol Tartrate 25 MG TAB PO SCH ×2 (10:25→21:31)
[2017-11-20] MEDS: Losartan 25 MG TAB PO SCH ×2 (10:25→21:31)
[2017-11-20] MEDS: Clotrimazole 1 % Cream 30 GM TUBE TOP SCH ×2 (10:26→21:35)
--- NOTE | 2017-11-20 12:03 | PDOC.PN ---
- Subjective Encounter Start Date: 11/20/17 (f/u stroke) Encounter Start Time: 12:00 Subjective: No overnight events. Family reports pt has been responsive this -: morning. Was able to stand with PT yesterday. - Objective Resuscitation Status: Resuscitation Status DNR:Do Not Resuscitate Vital Signs & Weight: Vital Signs (12 hours) Temp Pulse Resp BP BP Pulse Ox 11/20/17 08:00 99.9 F H 73 20 158/79 H 95 11/20/17 04:00 98.3 F 66 20 140/92 H 97 11/20/17 00:21 69 180/82 H Weight Admit Weight 155 lb Weight 160 lb 11.472 oz Most Recent Monitor Data Heart Rate from ECG 66 NIBP 155/77 NIBP BP-Mean 93 Respiration from ECG 26 SpO2 99 I&O: 11/19/17 11/20/17 11/21/17 06:59 06:59 06:59 Intake Total 1380 1530 Output Total 2200 775 Balance -820 755 Result Diagrams: 11/20/17 04:16 11/20/17 04:16 Phys Exam - Physical Examination Constitutional: NAD pt moving eye, nodding when spoken to by daughter Respiratory: no wheezing, no rales scattered rhonchi, good air movement Cardiovascular: RRR, no significant murmur Gastrointestinal: soft, non-tender, positive bowel sounds Musculoskeletal: no edema No spontaneous movement during my exam Deviation from normal: unable to assess Skin: no rash Dx/Plan (1) HCAP (healthcare-associated pneumonia) Code(s): J18.9 - PNEUMONIA, UNSPECIFIED ORGANISM Status: Acute (2) Aspiration pneumonia Code(s): J69.0 - PNEUMONITIS DUE TO INHALATION OF FOOD AND VOMIT Status: Acute Qualifiers: Laterality: bilateral Lung location: lower lobe of lung (3) Fever Code(s): R50.9 - FEVER, UNSPECIFIED Status: Acute (4) Hemorrhagic stroke Code(s): I61.9 - NONTRAUMATIC INTRACEREBRAL HEMORRHAGE, UNSPECIFIED Status: Acute (5) Hypokalemia Code(s): E87.6 - HYPOKALEMIA Status: Resolved (6) Dry eyes Status: Chronic (7) HTN (hypertension) Code(s): I10 - ESSENTIAL (PRIMARY) HYPERTENSION Status: Chronic Qualifiers: Hypertension type: essential hypertension Qualified Code(s): I10 - Essential (primary) hypertension - Plan * Fever - improved today - blood and urine cultures negative so far. Pt is on triple abx to cover for HCAP given the new fever, leukocytosis and change in xray yesterday. * * bp improved control - in the 140's and 150's today - continue current doses of losartan and metoprolol. Discussed with family slow adjustments of these medications. Goal is around 140-150 systolic consistently. * * tube feeds at goal and water flushes at goal * * stroke - pt to receive the same level of therapy on this floor/care minus telemetry monitoring. Coordinate speech therapy eval when pt is awake/alert * continue NG tube and monitor progress with activity, ability to swallow. Discussed with family over the past few days - pt has directives that say no [employer] peg tube or life-saving interventions. Reassess in a few days as family thinks the patient is aware/alert and decision for peg can be discussed if swallowing does not improve. * * dry eyes -artificial tears. * * dvt prophy - scd's * gi prophy - on famotidine * code status DNR * * discussed care and plan with one daughter and RN who demonstrates understanding and agree. .
[2017-11-20] MEDS: Scopolamine 1.5 mg/72 hour Patch TOP SCH (13:54)
[2017-11-20] MEDS: Zinc Oxide 20% Oint 30 GM TUBE TOP PRN ×2 (15:40→21:32)
[2017-11-20] MEDS ORDERED: Vancomycin HCl 1 GM in Premix Bag 1 BAG IVPB SCH (21:00)
[2017-11-21 05:57] LABS: Anion Gap 16 mmol/L (10-20); BUN (Urea Nitrogen) 18 mg/dL (9.8-20.1); Calc. Creatinine Clearance 72 mL/min (70-130); Calcium 9.3 mg/dL (7.8-10.44); Carbon Dioxide 22 mmol/L (23-31); Chloride 104 mmol/L (98-107); Estimated GFR-MDRD 76; Glucose 135 mg/dL (83-110); Potassium 3.7 mmol/L (3.5-5.1); Sodium 138 mmol/L (136-145)
[2017-11-21 06:10] LABS: Band 6 % (5-11); Eosinophils 1 % (0-10); Hemoglobin 13.6 g/dL (12.0-16.0); Lymphocytes 12 % (21-51); MDiff Complete? YES; Mean Corpuscular HGB CONC 33.8 g/dL (32.0-36.0); Mean Corpuscular Volume 88.8 fL (78.0-98.0); Mean Platelet Volume 8.5 fL (7.4-10.4); Monocytes 6 % (0-10); Neutrophil 75 % (42-75); Platelet Count 215 thou/uL (130-400); RBC Distribution Width 12.3 % (11.5-14.5); Red Blood Cell (RBC) Count 4.54 mill/uL (4.20-5.40); White Blood Cell (WBC) Count 16.6 thou/uL (4.8-10.8)
[2017-11-21] MEDS: Cefepime 2 GM in Sodium Chloride 0.9% 100 ML IVPB SCH ×2 (09:18→20:19)
[2017-11-21] MEDS: Metoprolol Tartrate 25 MG TAB PO SCH ×2 (09:19→21:50)
[2017-11-21] MEDS: Losartan 25 MG TAB PO SCH ×2 (09:19→21:50)
[2017-11-21] MEDS: Clotrimazole 1 % Cream 30 GM TUBE TOP SCH ×2 (09:20→21:59)
[2017-11-21] MEDS: Artificial Tears 18 DROP/0.9 ML EA EYE SCH ×4 (09:20→21:51)
[2017-11-21] MEDS: Famotidine 20 MG TAB PER TUBE SCH ×2 (09:20→21:51)
[2017-11-21] MEDS: Atorvastatin Calcium 20 MG TAB PER TUBE SCH (09:20)
[2017-11-21] MEDS: Acetaminophen 650 MG/20.3 ML UDCUP PO PRN ×2 (10:54→15:25)
--- NOTE | 2017-11-21 12:30 | PDOC.PN ---
- Subjective Encounter Start Date: 11/21/17 Encounter Start Time: 12:20 -: old records requested/rev Pt seen and examined, chart reviewed in its entirety, this is my first visit with this patient Admit for IPH and thalamic CVA. Pt apparently more awake this AM than previously, swallow eval failted, NG tube feedings to continue. No plans for PEG per son at this time. No Fevers in last 24 hours, no n/v/d/c, no SOB ROs not obtainable - Objective Resuscitation Status: Resuscitation Status DNR:Do Not Resuscitate MAR Reviewed: Yes Vital Signs & Weight: Vital Signs (12 hours) Temp Pulse Pulse Resp BP BP BP 11/21/17 08:43 62 167/77 H 11/21/17 08:00 99.1 F 64 20 140/84 11/21/17 04:15 98.9 F 65 16 177/74 H Pulse Ox 11/21/17 08:43 11/21/17 08:00 96 11/21/17 04:15 92 L Weight Admit Weight 155 lb Weight 160 lb 11.472 oz Most Recent Monitor Data Heart Rate from ECG 66 NIBP 155/77 NIBP BP-Mean 93 Respiration from ECG 26 SpO2 99 I&O: 11/20/17 11/21/17 11/22/17 06:59 06:59 06:59 Intake Total 1530 1010 Output Total 775 Balance 755 1010 Result Diagrams: 11/21/17 04:54 11/21/17 04:54 Radiology Reviewed by me: Yes EKG Reviewed by me: Yes Phys Exam - Physical Examination Constitutional: NAD HEENT: PERRLA, moist MMs, sclera anicteric, oral pharynx no lesions Neck: no nodes, no JVD, supple, full ROM Respiratory: no wheezing, no rales, no rhonchi, clear to auscultation bilateral upper airway gurgling Cardiovascular: RRR, no significant murmur, no rub Gastrointestinal: soft, non-tender, no distention, positive bowel sounds Musculoskeletal: no edema, edema present somnolent, difficult to arouse Lymphatic: no nodes Deviation from normal: sleepy, arousable, falls back to sleep Skin: no rash, normal turgor, cap refill <2 seconds Dx/Plan (1) Aspiration pneumonia Code(s): J69.0 - PNEUMONITIS DUE TO INHALATION OF FOOD AND VOMIT Status: Acute Qualifiers: Laterality: bilateral Lung location: lower lobe of lung (2) Fever Code(s): R50.9 - FEVER, UNSPECIFIED Status: Resolved (3) HCAP (healthcare-associated pneumonia) Code(s): J18.9 - PNEUMONIA, UNSPECIFIED ORGANISM Status: Acute (4) Hemorrhagic stroke Code(s): I61.9 - NONTRAUMATIC INTRACEREBRAL HEMORRHAGE, UNSPECIFIED Status: Acute (5) Dry eyes Status: Chronic (6) HTN (hypertension) Code(s): I10 - ESSENTIAL (PRIMARY) HYPERTENSION Status: Chronic Qualifiers: Hypertension type: essential hypertension Qualified Code(s): I10 - Essential (primary) hypertension - Plan cont current plan of care, plan discussed w/ family, continue antibiotics, PT/OT , speech therapy * .
[2017-11-21] MEDS ORDERED: traMADol HCl 50 MG TAB PER TUBE PRN (14:34)
[2017-11-21] MEDS: traMADol HCl 50 MG TAB PER TUBE PRN (14:47)
[2017-11-21] MEDS ORDERED: diphenhydrAMINE 50 MG/ML VIAL IVP SCH (17:00)
[2017-11-21 20:39] LABS: Vancomycin, Trough 4.7 ug/mL
[2017-11-21] MEDS: Vancomycin HCl 1 GM in Premix Bag 1 BAG IVPB SCH (21:04)
[2017-11-22 05:33] LABS: #Eosinphils 0.5 thou/uL (0.0-0.7); #Lymphocytes 1.2 thou/uL (1.20-3.40); #Monocytes 0.9 thou/uL (0.11-0.59); #Neutrophils 12.1 thou/uL (1.40-6.50); %Basophils 0.2 % (0.0-1.0); %Eosinophils 3.6 % (0.0-10.0); %Monocytes 6.3 % (0.0-10.0); %Neutrophils 81.9 % (42.0-75.0); Mean Corpuscular HGB CONC 33.4 g/dL (32.0-36.0); Mean Corpuscular Hemoglobin 29.8 pg (27.0-31.0); Mean Corpuscular Volume 89.1 fL (78.0-98.0); Mean Platelet Volume 8.1 fL (7.4-10.4); Platelet Count 200 thou/uL (130-400); RBC Distribution Width 12.4 % (11.5-14.5); Red Blood Cell (RBC) Count 4.69 mill/uL (4.20-5.40); White Blood Cell (WBC) Count 14.8 thou/uL (4.8-10.8)
[2017-11-22 05:48] LABS: Anion Gap 14 mmol/L (10-20); BUN (Urea Nitrogen) 18 mg/dL (9.8-20.1); Calc. Creatinine Clearance 76 mL/min (70-130); Calcium 9.1 mg/dL (7.8-10.44); Carbon Dioxide 23 mmol/L (23-31); Chloride 104 mmol/L (98-107); Estimated GFR-MDRD 81; Glucose 153 mg/dL (83-110); Magnesium 2.3 mg/dL (1.6-2.6); Potassium 3.9 mmol/L (3.5-5.1); Sodium 137 mmol/L (136-145)
[2017-11-22 07:38] VITALS: BP 193/86; TEMP 98.1
[2017-11-22] MEDS: hydrALAZINE 20 MG/ML VIAL SLOW IVP PRN (07:59)
[2017-11-22] MEDS: Cefepime 2 GM in Sodium Chloride 0.9% 100 ML IVPB SCH (07:59)
[2017-11-22] MEDS ORDERED: Loratadine 5 MG/5 ML UDCUP PER TUBE SCH (09:00)
[2017-11-22] MEDS: Atorvastatin Calcium 20 MG TAB PER TUBE SCH (09:10)
[2017-11-22] MEDS: Losartan 25 MG TAB PO SCH (09:10)
[2017-11-22] MEDS: Metoprolol Tartrate 25 MG TAB PO SCH (09:10)
[2017-11-22] MEDS: Artificial Tears 18 DROP/0.9 ML EA EYE SCH ×3 (09:13→18:35)
[2017-11-22] MEDS: Clotrimazole 1 % Cream 30 GM TUBE TOP SCH (09:24)
[2017-11-22] MEDS: Famotidine 20 MG TAB PER TUBE SCH (10:23)
--- NOTE | 2017-11-22 11:08 | PDOC.PN ---
- Subjective Encounter Start Date: 11/22/17 Encounter Start Time: 11:00 Pt more awake this morning. daughter the bedside, verbalized that the pt does not want a senior care feeding tube. HBV to see at 1330 today just to give information. No acute events overnight. lost IV this AM, planned to stop vanc anyways, may try levoflox alone Pt nonverbal, not following commands well. Dense left hemiplegia - Objective Resuscitation Status: Resuscitation Status DNR:Do Not Resuscitate MAR Reviewed: Yes Vital Signs & Weight: Vital Signs (12 hours) Temp Pulse Resp BP Pulse Ox 11/22/17 08:00 98.1 F 57 L 20 11/22/17 07:59 57 L 11/22/17 07:25 98.1 F 57 L 20 193/86 H 98 Weight Admit Weight 155 lb Weight 160 lb 11.472 oz Most Recent Monitor Data Heart Rate from ECG 66 NIBP 155/77 NIBP BP-Mean 93 Respiration from ECG 26 SpO2 99 I&O: 11/21/17 11/22/17 11/23/17 06:59 06:59 06:59 Intake Total 1010 450 Balance 1010 450 Result Diagrams: 11/22/17 05:07 11/22/17 05:07 Phys Exam - Physical Examination Constitutional: NAD HEENT: PERRLA, moist MMs, sclera anicteric, oral pharynx no lesions Neck: no nodes, no JVD, supple Respiratory: no wheezing, no rales, no rhonchi, clear to auscultation bilateral Cardiovascular: no significant murmur, no rub, irregular Gastrointestinal: soft, non-tender, no distention, positive bowel sounds Musculoskeletal: edema present dense LUE and LLE hemiplegia Lymphatic: no nodes Skin: no rash, normal turgor, cap refill <2 seconds Dx/Plan (1) Aspiration pneumonia Code(s): J69.0 - PNEUMONITIS DUE TO INHALATION OF FOOD AND VOMIT Status: Acute Qualifiers: Laterality: bilateral Lung location: lower lobe of lung Comment: On Vanc, Cefepime and Levoflox. will stop vacnand cefepimne adn watch. WBC down a little today, afebrile (2) Fever Code(s): R50.9 - FEVER, UNSPECIFIED Status: Resolved Qualifiers: Fever type: due to other condition Qualified Code(s): R50.81 - Fever presenting with conditions classified elsewhere (3) HCAP (healthcare-associated pneumonia) Code(s): J18.9 - PNEUMONIA, UNSPECIFIED ORGANISM Status: Acute (4) Hemorrhagic stroke Code(s): I61.9 - NONTRAUMATIC INTRACEREBRAL HEMORRHAGE, UNSPECIFIED Status: Acute (5) Dry eyes Status: Chronic (6) HTN (hypertension) Code(s): I10 - ESSENTIAL (PRIMARY) HYPERTENSION Status: Chronic Qualifiers: Hypertension type: essential hypertension Qualified Code(s): I10 - Essential (primary) hypertension - Plan cont current plan of care, plan discussed w/ family, continue antibiotics, PT/OT * .
[2017-11-22] MEDS: hydrOXYzine 25 MG TAB PER TUBE PRN ×2 (12:48→18:35)
[2017-11-22] MEDS: traMADol HCl 50 MG TAB PER TUBE PRN (16:01)
[2017-11-22] MEDS: Vancomycin HCl 1 GM in Premix Bag 1 BAG IVPB SCH (19:17)
--- NOTE | 2017-11-23 07:28 | DIS ---
DATE OF ADMISSION: 11/10/2017 DATE OF DISCHARGE: 11/22/2017 PRIMARY CARE PHYSICIAN: None. DISCHARGE DIAGNOSES: 1. 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 2. Healthcare-associated pneumonia, suspected aspiration. 3. Hypertension. 4. Oropharyngeal dysphagia secondary to stroke. 5. Left-sided weakness secondary to stroke. 6. Broca's aphasia. 7. Sepsis secondary to secondary to healthcare-associated pneumonia, not present on admission. 8. Physical deconditioning. CONSULTATIONS: 1. Pulmonary Critical Care, 11/11/2017. 2. Neurosurgery, Dr. Mikie Olsen. PROCEDURES: None. HISTORY AND PHYSICAL: Ms. Patel is a 77-year-old female admitted on 11/10/2017 by the neurosurgical service for altered mental status, who was found to have an intraparenchymal hemorrhage. She was int ubated and sedated at the time of admission and she had been in a [employer] meeting giving a speec h and had slurred speech and left-sided numbness around 0635. Workup in ER showed a right thalamic h emorrhagic infarct and the patient was admitted. HOSPITAL COURSE: The patient initially admitted by Neurosurgery, Pulmonary Critical Care was consult ed and saw the patient. We are consulted for medical management and saw the patient initially on . The patient was extubated by 11/16, but remained drowsy and lethargic. NG tube was placed as family ultimately decided to proceed and tube feeds were started. Overnight 11/16 to 11/17, the patient was somewhat disruptive and had to be restrained. From 11/18 to 11/20, the patient was transitioned to the floor. The patient developed fever and infi ltrated on 11/19 and suspected to be aspiration pneumonia and was started on vancomycin, cefepime, Le vaquin for healthcare-associated pneumonia. Family continued to consider options and ultimately on 0 11/21 when I took over the case, requested the hospice consultation for information. On 11/22, the hospice did visit with the patient. The family ultimately decided to transition to [facility] and the patient was discharged home with hospice services. PHYSICAL EXAMINATION: The patient was seen and examined on the day of discharge. Please see my prog ress note of same day. DISCHARGE MEDICATIONS: None. New medications to be started by hospice. DISCHARGE CONDITION: Poor. DISPOSITION: The patient discharged to home with [facility]. DISCHARGE ACTIVITY: As tolerated. DISCHARGE DIET: Per hospice. Greater than 45 minutes were spent coordinating discharge and discussed with family.
== END 2017-11-22 20:40 | disposition hospice, inpatient (51) | DRG 64 ==
LOC: ERS 19:01 → CCU 22:32 → ONC 11-14 15:32
PROVIDERS: ADMIT Neurological Surgery; ATTEND Neurological Surgery
PROC: 0BH17EZ Insertion of Endotracheal Airway into Trachea, Via Natural or Artificial Opening (ICD-10-PCS; principal; 2017-11-10)
PROC: 5A1945Z Respiratory Ventilation, 24-96 Consecutive Hours (ICD-10-PCS; 2017-11-10)
PROC: 0BH17EZ Insertion of Endotracheal Airway into Trachea, Via Natural or Artificial Opening (ICD-10-PCS; 2017-11-12)
PROC: 5A1945Z Respiratory Ventilation, 24-96 Consecutive Hours (ICD-10-PCS; 2017-11-12)
PROC: 0DH67UZ Insertion of Feeding Device into Stomach, Via Natural or Artificial Opening (ICD-10-PCS; 2017-11-16)
PROC: 3E0G76Z Introduction of Nutritional Substance into Upper GI, Via Natural or Artificial Opening (ICD-10-PCS; 2017-11-16)
DX: I61.0 Nontraumatic intracerebral hemorrhage in hemisphere, subcortical (principal); J69.0 Pneumonitis due to inhalation of food and vomit; A41.9 Sepsis, unspecified organism; G93.6 Cerebral edema; J96.00 Acute respiratory failure, unspecified whether with hypoxia or hypercapnia; J18.9 Pneumonia, unspecified organism; G81.94 Hemiplegia, unspecified affecting left nondominant side; G91.9 Hydrocephalus, unspecified; R47.01 Aphasia; E87.1 Hypo-osmolality and hyponatremia; I10 Essential (primary) hypertension; E03.9 Hypothyroidism, unspecified; Y95 Nosocomial condition; R13.12 Dysphagia, oropharyngeal phase; Z51.5 Encounter for palliative care; Z66 Do not resuscitate; Z96.651 Presence of right artificial knee joint; Z78.1 Physical restraint status; E87.6 Hypokalemia; R29.718 NIHSS score 18
CPT/HCPCS: 31500; 36415; 36416; 51702; 70450; 71045; 80048; 80053; 80202; 80306; 80307; 81003; 81015; 82040; 82550; 82553; 82805; 83605; 83735; 84100; 84484; 85025; 85610; 85730; 87040; 87086; 93005; 93010; 93970; 94002; 94003; 96365; 96366; 96367; 96376; G8978-GP-CM; G8979-GP-CK; G8987-GO-CN; G8988-GO-CM; G8996-GN-CN; G8997-GN-CL; J0171; J0360; J0692; J1630; J1885; J1956; J2060; J2270; J2543; J2704; J3370; J3480; J7050; S0028